=== PATIENT | female | born 1995 | race Caucasian/White ===

== ENCOUNTER 2017-09-24 18:29 | Observation (INO) | payer OTHER ==
[2017-09-24 19:19] VITALS: BP 118/57; PULSE 82
[2017-09-24 19:23] LABS: Appearance CLEAR (CLEAR); Specific Gravity 1.015 (1.005-1.025)
[2017-09-24 19:24] LABS: Amphetamine,Urine NEGATIVE (NEGATIVE); Barbiturate,Urine NEGATIVE (NEGATIVE); Benzodiazepine,Urine NEGATIVE (NEGATIVE); Bilirubin NEGATIVE (NEGATIVE); Blood TRACE NON-HEM Ery/ul (0-5); Cocaine,Urine NEGATIVE (NEGATIVE); Glucose NEGATIVE (NEGATIVE); Ketones NEGATIVE (NEGATIVE); Leukocyte Esterase NEGATIVE (NEGATIVE); Methadone,Urine NEGATIVE (NEGATIVE); Nitrite NEGATIVE (NEGATIVE); Opiate,Urine NEGATIVE (NEGATIVE); PCP,Urine NEGATIVE (NEGATIVE); Protein,Urine Dip NEGATIVE (Negative); THC,Urine NEGATIVE (NEGATIVE); Urobilinogen NORMAL mg/dL (0-1)
== END 2017-09-24 20:25 | disposition home or self-care (01) ==
LOC: OB 18:29 → UNDOADMOB 18:29 → UNDODISOB 20:25
PROVIDERS: ADMIT Family Medicine; ATTEND Family Medicine
DX: Z34.83 Encounter for supervision of other normal pregnancy, third trimester (principal)
CPT/HCPCS: 80307; 81002; G0378

== ENCOUNTER 2017-10-08 07:35 | Observation (INO) | payer OTHER ==
[2017-10-08 08:00] VITALS: BP 125/58; PULSE 75
[2017-10-08 08:34] LABS: Appearance SLIGHTLY HAZY (CLEAR)
[2017-10-08 08:35] LABS: Bilirubin NEGATIVE (NEGATIVE); Blood 250 Ery/ul (0-5); Glucose NEGATIVE (NEGATIVE); Ketones NEGATIVE (NEGATIVE); Leukocyte Esterase TRACE (NEGATIVE); Nitrite NEGATIVE (NEGATIVE); Protein,Urine Dip NEGATIVE (Negative); RBC >100 /HPF (0-2); Urobilinogen NORMAL mg/dL (0-1)
[2017-10-08 08:36] LABS: Bacteria MANY /HPF (NEGATIVE); Epithelial Cells MANY /HPF (FEW)
== END 2017-10-08 09:45 | disposition home or self-care (01) ==
LOC: OB 07:35
PROVIDERS: ADMIT Family Medicine; ATTEND Family Medicine
DX: Z34.83 Encounter for supervision of other normal pregnancy, third trimester (principal)
CPT/HCPCS: 81000; G0378

== ENCOUNTER 2017-10-29 05:01 | Inpatient (IN) | payer OTHER ==
[~2017-10-29 05:01] MED LIST: BICITRA 30 ML CUP PO SCH; Lactated Ringers 1,000 ML IV ONE; Lactated Ringers 1,000 ML IV SCH; Pepcid 20 MG VIAL IV SCH; Reglan 10 MG/2 ML IV SCH
[2017-10-29] MEDS ORDERED: CLINDAMYCIN-D5W 900 MG/50 ML*** 900 MG/50 ML BAG IV SCH (05:30)
[2017-10-29 05:42] LABS: Hematocrit 32.6 % (35-47); Mean Cell Volume 87.4 fl (78-100); Mean Corpuscular Hgb Concent. 33.7 g/dl (32-36); Mean Platelet Volume 11.2 fl (6-9.5); Platelet Count 199 K/mm3 (150-450); Red Blood Count 3.73 M/mm3 (4.1-5.4); White Blood Count 11.8 K/mm3 (4.0-10.5)
[2017-10-29 05:47] LABS: Mean Corpuscular Hemoglobin 29.4 pg (26-32)
[2017-10-29 05:58] LABS: INR 0.92 (0.8-3.0)
[2017-10-29 06:00] LABS: PTT 26.8 SECONDS (25.3-37.0)
[2017-10-29 06:11] LABS: Appearance CLOUDY (CLEAR); Bilirubin NEGATIVE (NEGATIVE); Blood NEGATIVE Ery/ul (0-5); Glucose NEGATIVE (NEGATIVE); Ketones TRACE (NEGATIVE); Leukocyte Esterase 1+ (NEGATIVE); Nitrite NEGATIVE (NEGATIVE); Protein,Urine Dip NEGATIVE (Negative); Urobilinogen 1 mg/dL (0-1)
[2017-10-29 06:16] LABS: Bacteria MODERATE /HPF (NEGATIVE); Epithelial Cells MANY /HPF (FEW); Mucus SLIGHT /HPF (NEGATIVE)
[2017-10-29 06:34] LABS: ABO TYPING B; Antibody Screen NEGATIVE (NEGATIVE); RH TYPING POSITIVE
[2017-10-29 06:37] LABS: Amphetamine,Urine NEGATIVE (NEGATIVE); Barbiturate,Urine NEGATIVE (NEGATIVE); Benzodiazepine,Urine NEGATIVE (NEGATIVE); Cocaine,Urine NEGATIVE (NEGATIVE); Methadone,Urine NEGATIVE (NEGATIVE); Opiate,Urine NEGATIVE (NEGATIVE); PCP,Urine NEGATIVE (NEGATIVE); THC,Urine NEGATIVE (NEGATIVE)
[2017-10-29] MEDS ORDERED: Lactated Ringers 1,000 ML IV ONE (07:36)
[2017-10-29] MEDS ORDERED: Narcan 0.4 MG/ML IV PRN (08:00)
[2017-10-29] MEDS ORDERED: CLARITIN 10 MG PO PRN (08:00)
[2017-10-29] MEDS ORDERED: Zofran 4 MG/2 ML VIAL IV PRN (08:00)
[2017-10-29] MEDS ORDERED: PERCOCET TABLET 5/325MG PO PRN (08:00)
[2017-10-29] MEDS ORDERED: HOLD NARCOTIC ANALGESICS AND SEDATIVES X24 HR MC PRN (08:00)
[2017-10-29] MEDS ORDERED: DEMEROL 50 MG IV PRN (08:00)
[2017-10-29] MEDS ORDERED: BENADRYL 50 MG/ML IV PRN (08:00)
[2017-10-29] MEDS ORDERED: Nubain 10 MG/ML IV PRN (08:00)
[2017-10-29] MEDS ORDERED: Zofran 4 MG/2 ML VIAL ONE (08:41)
[2017-10-29] MEDS ORDERED: TYLENOL EXTRA STRENGTH 500 MG PO PRN (09:00)
[2017-10-29] MEDS ORDERED: CORTISONE 1% CREAM TP PRN (09:00)
[2017-10-29] MEDS ORDERED: Anucort-HC SUPPOSITORY PR PRN (09:00)
[2017-10-29] MEDS ORDERED: LANSINOH 40 GM TOP PRN (09:00)
[2017-10-29] MEDS ORDERED: Dulcolax 10 MG SUPP PR PRN (09:00)
[2017-10-29] MEDS ORDERED: Dermoplast Spray TP PRN (09:00)
[2017-10-29] MEDS ORDERED: Mylicon 80MG PO PRN (09:00)
--- NOTE | 2017-10-29 09:36 | OP ---
SURGERY DATE: 10/29/17 SURGERY TIME: PREOPERATIVE DIAGNOSES: 1. GESTATIONAL HYPERTENSION. 2. HISTORY OF PRIOR SECTION. 3. TERM INTRAUTERINE . POSTOPERATIVE DIAGNOSES: 1. GESTATIONAL HYPERTENSION. 2. HISTORY OF PRIOR SECTION. 3. TERM INTRAUTERINE . PROCEDURE: 1. Repeat low transverse section. SURGEON: James Will M.D. ANESTHESIA: Spinal by Neal Prado CRNA. ESTIMATED BLOOD LOSS: 400 cc. URINE: 150 cc of clear, straw-colored urine. IV FLUIDS: 1800 cc of crystalloid. SPECIMEN: None. DESCRIPTION OF PROCEDURE: After informed written consent was obtained, the patient was taken to the OR. She underwent spinal anesthesia and was prepped and draped in the usual sterile fashion. After adequate level of anesthesia was assessed, a low transverse skin incision was made by knife and carried down through the subcutaneous fat to the level of the fascia. The fascia was nicked on both sides of the midline and extended in a horizontal fashion using curved Jacobo scissors. The superior free edge of the fascia was grasped with Bartolo clamps and the underlying rectus muscles were dissected free. The same was repeated inferiorly. Next, the peritoneal cavity was opened and extended in a horizontal fashion. A bladder blade was inserted. Then, a bladder flap was created and reflected over the lower uterine segment. A horizontal uterine incision was made by knife and carried down to the level of the amniotic membranes which were carefully artificially ruptured. A viable female infant was delivered from the vertex presentation with a strong cry immediately upon delivery. The oropharynx and nares were bulb suctioned free. Cord was clamped and cut and she was handed off to the awaiting nursery team. Next, the placenta was manually removed from the uterus and the uterus was exteriorized. The uterine cavity was then sponge curetted clean with a Lap sponge. Next, the uterine incision was closed with #1 chromic suture in a running, locked fashion. Two layers were used to provide good closure and good hemostasis. The posterior cul-de-sac was wiped free of blood and clot with a moist Lap sponge and then the uterus was returned to the peritoneal cavity. Lateral gutters were wiped free of blood and clot and again, the uterine incision was inspected and noted to be well approximated and hemostatic. Next, the fascia was closed with 0 Vicryl in a running fashion with good closure and good hemostasis. Subcutaneous fat was irrigated with warm, sterile saline and any areas of bleeding were cauterized with electrocautery. Finally, the skin layer was closed with 4-0, undyed Vicryl in running subcuticular fashion. Steri-Strips and an occlusive dressing were placed over the incision and the patient was transferred to the recovery room in excellent condition.
[2017-10-29] MEDS: Dextrose 5%-Lr IV Solution 1000 ML 1,000 ML IV SCH ×2 (10:05→16:47)
[2017-10-29] MEDS: Colace 100 MG PO SCH ×2 (10:06→22:09)
[2017-10-29] MEDS: FERREX 150 PO SCH (10:06)
[2017-10-29] MEDS ORDERED: Marcaine Spinal Ampul IJ ONE (10:49)
[2017-10-29] MEDS ORDERED: Naropin 0.5% 30 ML VIAL IJ ONE (10:49)
[2017-10-29] MEDS ORDERED: Xylocaine-Mpf 2% 5 Ml Vial IJ ONE (10:49)
[2017-10-29] MEDS ORDERED: Zofran 4 MG/2 ML VIAL IV ONE (10:53)
[2017-10-29] MEDS ORDERED: Decadron 4 MG INJ IV ONE (10:53)
[2017-10-29] MEDS ORDERED: Ephedrine Sulfate 50 MG/ML IJ ONE (10:53)
[2017-10-29] MEDS: MOTRIN 400 MG PO PRN (14:20)
[2017-10-29] MEDS: NORCO 5/325 MG PO PRN (22:20)
[2017-10-30 05:56] LABS: Granulocyte Absolute (ANC) 12.44 (1.4-6.9); Hemoglobin 9.7 gm/dl (12.0-16.0); Mean Cell Volume 88.1 fl (78-100); Mean Corpuscular Hgb Concent. 33.4 g/dl (32-36); Mean Platelet Volume 11.2 fl (6-9.5); Platelet Count 216 K/mm3 (150-450); Red Blood Count 3.29 M/mm3 (4.1-5.4); Red Cell Distribution Width 14.1 % (11.5-14.0); White Blood Count 16.6 K/mm3 (4.0-10.5)
[2017-10-30 05:59] LABS: Mean Corpuscular Hemoglobin 29.4 pg (26-32)
[2017-10-30] MEDS: NORCO 5/325 MG PO PRN ×4 (06:00→23:57)
[2017-10-30 07:16] LABS: BAND 3 % (0.0-2.0); Eosinophil 2 % (0.00-3.0); Lymphocytes 21 % (24-44); Metamyelocyte 1 %; Monocyte 4 % (0.0-12.0); Neutrophils 69 % (36.0-66.0); Platelet Estimate NORMAL (NORMAL); Total Cells Counted 100
[2017-10-30] MEDS ORDERED: DEMEROL 75 MG IM PRN (08:00)
[2017-10-30] MEDS ORDERED: NORCO 5/325 MG PO PRN (08:00)
[2017-10-30] MEDS ORDERED: Phenergan 25 MG INJ IM PRN (08:00)
[2017-10-30] MEDS ORDERED: Adacel Vial IM ONE (10:00)
[2017-10-30] MEDS: FERREX 150 PO SCH (11:40)
[2017-10-30] MEDS: Colace 100 MG PO SCH ×2 (11:40→21:47)
[2017-10-30] MEDS: MOTRIN 400 MG PO PRN (14:17)
[2017-10-31 09:59] VITALS: BP 114/67; PULSE 90
--- NOTE | 2017-11-03 12:55 | DS ---
DISCHARGE DIAGNOSIS: SECTION DELIVERY OF TERM INTRAUTERINE . HOSPITAL COURSE: The patient is a 22 year-old white female who presented for delivery. She had a section performed on 10/29/2017. The patient has done well postoperatively. She has been afebrile with stable vital signs. Her postoperative hemoglobin was 9.7, PLT count was normal at 216,000. She has been afebrile with stable vital signs. The wound has continued to look good. She is ready for discharge home on the morning of 10/31/2017. I will follow her up in the office next week due to the patient's doctor being out of the office next week. She was instructed to call back if she has any fever, heavy bleeding, increasing abdominal pain, redness of the wound site or drainage.
== END 2017-10-31 11:00 | disposition home or self-care (01) | DRG 766 ==
LOC: OB 05:01
PROVIDERS: ADMIT Family Medicine; ATTEND Family Medicine
PROC: 10D00Z1 Extraction of Products of Conception, Low, Open Approach (ICD-10-PCS; principal; 2017-10-29)
DX: O13.3 Gestational [pregnancy-induced] hypertension without significant proteinuria, third trimester (principal); Z3A.38 38 weeks gestation of pregnancy; Z37.0 Single live birth
CPT/HCPCS: 36415; 64488; 76937; 76942; 80307; 81000; 85025; 85027; 85610; 85730; 86850; 86900; 86901; 87086; 90471; 90715; J1100; J2405; J2795; L0625; A9270-GY

== ENCOUNTER 2018-01-23 18:51 | Emergency (ER) | payer OTHER ==
[2018-01-23 19:15] VITALS: BP 117/74; PULSE 93
[2018-01-23] MEDS ORDERED: TYLENOL EXTRA STRENGTH 500 MG ONE (19:37)
[2018-01-23] MEDS ORDERED: TORAdol 30 mg Injection ONE (19:37)
[2018-01-23] MEDS ORDERED: MOTRIN 600 MG ONE (19:38)
[2018-01-23] MEDS: MOTRIN 600 MG PO ONE (19:40)
[2018-01-23] MEDS: TORAdol 30 mg Injection IM ONE (19:41)
[2018-01-23] MEDS: TYLENOL EXTRA STRENGTH 500 MG PO STA (19:41)
--- NOTE | 2018-01-23 19:41 | ERPHSYRPT ---
- History of Present Illness Time Seen by Provider: 01/23/18 19:36 Source: patient Exam Limitations: no limitations Patient Subjective Stated Complaint: pt here for possible infection to right breast, pt is breast feeding at current time and running a fever at present time Triage Nursing Assessment: pt walked in resp easy, skin w/d/p, pt has swelling, reddness and warmth to right breast Physician History: 22-year-old female presented breast-feeding came to the emergency room with complaining of severe pain on her right breast with some redness and erythema, as well as fever about 102F. Initially, she put heat, but which made her pain worse, afterwards, when she put ice pack. it did got better. Timing/Duration: today Severity: moderate Modifying Factors: Improves With: cold therapy Associated Symptoms: fever Allergies/Adverse Reactions: amoxicillin [Amoxicillin] Allergy (Mild, Verified 01/23/18 19:15) morphine Allergy (Verified 01/23/18 19:15) pt has had morphine twice and states she had trouble breathing Home Medications: No Reportable Medications [No Reported Medications] 01/23/18 [History] Hx Tetanus, Diphtheria Vaccination/Date Given: Yes Hx Influenza Vaccination/Date Given: Yes Hx Pneumococcal Vaccination/Date Given: No Immunizations Up to Date: Yes - Review of Systems Constitutional: Fever, No Chills Eyes: No Symptoms Ears, Nose, & Throat: No Symptoms Respiratory: No Cough, No Dyspnea Cardiac: No Chest Pain, No Edema, No Syncope Abdominal/Gastrointestinal: No Abdominal Pain, No Nausea, No Vomiting, No Diarrhea Genitourinary Symptoms: No Dysuria Musculoskeletal: No Back Pain, No Neck Pain Skin: Other (right breast lateral redness and tenderness), No Rash Neurological: No Dizziness, No Focal Weakness, No Sensory Changes Psychological: No Symptoms Endocrine: No Symptoms All Other Systems: Reviewed and Negative - Past Medical History Pertinent Past Medical History: No - Past Surgical History Past Surgical History: Yes Female Surgical History: Section - Social History Smoking Status: Former smoker Exposure to second hand smoke: No Drug Use: none Patient Lives Alone: No - Female History Hx Last Menstrual Period: december 29 Hx Now: No - Nursing Vital Signs Nursing Vital Signs: Initial Vital Signs Temperature 98.1 F 01/23/18 19:10 Pulse Rate 93 H 01/23/18 19:10 Respiratory Rate 16 01/23/18 19:10 Blood Pressure 117/74 01/23/18 19:10 Pain Scale Pain Intensity 7 - Physical Exam General Appearance: no apparent distress, alert Eye Exam: PERRL/EOMI, eyes nml inspection Ears, Nose, Throat Exam: normal ENT inspection, TMs normal, pharynx normal, moist mucous membranes Neck Exam: normal inspection, non-tender, supple, full range of motion Respiratory Exam: normal breath sounds, lungs clear, No respiratory distress Cardiovascular Exam: regular rate/rhythm, normal heart sounds, normal peripheral pulses Gastrointestinal/Abdomen Exam: soft, normal bowel sounds, No tenderness, No mass Back Exam: normal inspection, normal range of motion, No CVA tenderness, No vertebral tenderness Extremity Exam: normal inspection, normal range of motion, pelvis stable Neurologic Exam: alert, oriented x 3, cooperative, normal mood/affect, nml cerebellar function, nml station & gait, sensation nml, No motor deficits Skin Exam: normal color, warm, dry, other (right breast tenderness and erythema) , No rash Lymphatic Exam: No adenopathy - Course Nursing assessment & vital signs reviewed: Yes Ordered Tests: Active Orders 24 hr Category Date Time Status Ice Pack, Apply PRN Care 01/23/18 19:29 Active Medication Summary Discontinued Medications Generic Name Dose Route Start Last Admin Trade Name Pashaq PRN Reason Stop Dose Admin Acetaminophen 1,000 mg 01/23/18 19:30 01/23/18 19:41 Tylenol Extra Strength 500 Mg PO 01/23/18 19:31 1,000 mg STAT STA Administration Acetaminophen Confirm 01/23/18 19:37 Tylenol Extra Strength 500 Mg Administered 01/23/18 19:38 Dose 1,000 mg .ROUTE .STK-MED ONE Ibuprofen 600 mg 01/23/18 19:29 01/23/18 19:40 Motrin 600 Mg PO 01/23/18 19:30 600 mg STAT ONE Administration Ibuprofen Confirm 01/23/18 19:38 Motrin 600 Mg Administered 01/23/18 19:39 Dose 600 mg .ROUTE .STK-MED ONE Ketorolac Tromethamine 30 mg 01/23/18 19:29 01/23/18 19:41 Toradol 30 Mg Injection IM 01/23/18 19:30 30 mg STAT ONE Administration Ketorolac Tromethamine Confirm 01/23/18 19:37 Toradol 30 Mg Injection Administered 01/23/18 19:38 Dose 30 mg .ROUTE .STK-MED ONE - Progress Progress: improved, pain not gone completely Counseled pt/family regarding: diagnosis, need for follow-up - Departure Time of Disposition: 19:55 Departure Disposition: Home Clinical Impression: Mastitis without abscess, Mastitis, obstetric, condition Condition: Stable Critical Care Time: No Referrals: IMANI PATEL MD [Primary Care Provider] - Instructions: Mastitis, Mastitis (DC), Common Problems, Fever, Adult (DC) Additional Instructions: FEVER 1. Do not cover the child with heavy clothes or blankets. Air must be able to reach the skin to lower the fever. 2. Use Acetaminophen or Ibuprofen only as directed by the physician. Do not use aspirin products. 3. A tepid, or luke warm sponge bath may be indicated if the fever raises to 103.5 or greater. Sponge bath should only last for 20-30 minutes. Recheck the child's temperature one hour after sponge bath. Do not soak the child in tub. Please follow the instructions given to you. Please take your medication as prescribed if given. If symptoms recur or get worse, come back to the emergency room if you cannot reach your primary care physician, or call your primary care physician for an appointment. Again if your symptoms get worse, come back to the emergency room. Thanks for visiting emergency room, and let us take care of you.
== END 2018-01-23 20:18 | disposition home or self-care (01) ==
LOC: ED 18:51
DX: O91.22 Nonpurulent mastitis associated with the puerperium (principal)
CPT/HCPCS: 96372; 99284; J1885; A9270-GY

== ENCOUNTER 2021-11-13 20:08 | Emergency (ER) | payer OTHER ==
[2021-11-13 21:09] LABS: Appearance SLIGHTLY CLOUDY (CLEAR); Bilirubin SMALL (NEGATIVE); Dipstick done @ ? MAIN LAB; Glucose 100 mg/dL (NEGATIVE); Ketones SMALL-15 (NEGATIVE); Nitrite POSITIVE (NEGATIVE); Protein,Urine Dip 100 (Negative); RBC MODERATE Ery/ul (0-5); Specific Gravity 1.025 (1.005-1.025); Urobilinogen 4 mg/dL (0-1)
[2021-11-13 21:14] LABS: Bacteria FEW /HPF (NEGATIVE); Epithelial Cells RARE /HPF (FEW); Mucus SLIGHT /HPF (NEGATIVE); RBC 26-50 /HPF (0-2); Urine Cultured Indicated? YES; WBC 51-100 /HPF (0-5)
--- NOTE | 2021-11-13 22:57 | ERPHSYRPT ---
- History of Present Illness Time Seen by Provider: 11/13/21 20:40 Source: patient Exam Limitations: no limitations Patient Subjective Stated Complaint: pt states she has been having lower back pain and pain in her bladder area. describes pain as pressure. pain with urinat ion. Triage Nursing Assessment: pt alert and oriented, answers questions approp. pt ambulatory with steady gait noted. respirations nonlabored with lungs cta. skin pink warm and dry. urine orange- pt taking pyridium. Physician History: Patient is a 26-year-old female presents to our ED with complaints of mild abdominal pain mild back pain. Patient was seen at a [facility] care today. Patient was diagnosed with a urinary tract infection. Patient was prescribed antibiotics. Patient was advised to come to our ED if she experienced worsening symptoms. Patient is here because of vague diffuse abdominal pain and low back pain. No nausea or vomiting. No diarrhea. No rash. No fever no trauma. Symptoms are mild in intensity. Patient declined pain medication. Patient that she is otherwise healthy. She voices no other complaints or concerns at this time. Timing/Duration: today Severity: mild Modifying Factors: Improves With: nothing Associated Symptoms: denies symptoms, No nausea, No vomiting, No shortness of breath, No diaphoresis, No chest pain, No fever, No headaches, No syncope, No seizure, No weakness Allergies/Adverse Reactions: amoxicillin [Amoxicillin] Allergy (Mild, Verified 11/13/21 20:45) morphine Allergy (Verified 11/13/21 20:45) pt has had morphine twice and states she had trouble breathing Home Medications: Nitrofurantoin Macro 100 mg [Macrobid 100MG Capsule] 100 mg PO BID 11/13/21 [History] Phenazopyridine HCl 200 mg [Pyridium 200 mg] 200 mg PO TID 11/13/21 [History] Hx Tetanus, Diphtheria Vaccination/Date Given: No Hx Influenza Vaccination/Date Given: Yes Hx Pneumococcal Vaccination/Date Given: No Immunizations Up to Date: Yes Travel Risk - International Travel Have you traveled outside of the country in past 3 weeks: No - Coronavirus Screening Are you exhibiting any of the following symptoms?: No Close contact with a COVID-19 positive Pt in past 14-21 Days: No - Vaccine Status Have you recieved a Covid-19 vaccination: Yes [employer]: TMS - Vaccination Dates Date of 2cond Vaccination (if applicable): dec 2020 - Review of Systems Constitutional: No Symptoms, No Fever, No Chills Eyes: No Symptoms Ears, Nose, & Throat: No Symptoms Respiratory: No Symptoms, No Cough, No Dyspnea Cardiac: No Symptoms, No Chest Pain, No Edema, No Syncope Abdominal/Gastrointestinal: No Symptoms, No Abdominal Pain, No Nausea, No Vomiting, No Diarrhea Genitourinary Symptoms: No Symptoms, No Dysuria Musculoskeletal: No Symptoms, No Back Pain, No Neck Pain Skin: No Symptoms, No Rash Neurological: No Symptoms, No Dizziness, No Focal Weakness, No Sensory Changes Psychological: No Symptoms Endocrine: No Symptoms Hematologic/Lymphatic: No Symptoms Immunological/Allergic: No Symptoms All Other Systems: Reviewed and Negative - Past Medical History Pertinent Past Medical History: No - Past Surgical History Past Surgical History: Yes Female Surgical History: Section Other Surgical History: c sections x2 - Social History Smoking Status: Never smoker Exposure to second hand smoke: No Drug Use: none Patient Lives Alone: No - Female History Hx Last Menstrual Period: iud out last week- none since Hx Now: No - Nursing Vital Signs Nursing Vital Signs: Initial Vital Signs Temperature 98.0 F 11/13/21 20:29 Pulse Rate 83 11/13/21 20:29 Respiratory Rate 16 11/13/21 20:29 Blood Pressure 125/79 11/13/21 20:29 O2 Sat by Pulse Oximetry 98 11/13/21 20:29 Pain Scale Pain Intensity 6 - Physical Exam General Appearance: no apparent distress, alert Eye Exam: PERRL/EOMI, eyes nml inspection Ears, Nose, Throat Exam: normal ENT inspection, TMs normal, pharynx normal, moist mucous membranes Neck Exam: normal inspection, non-tender, supple, full range of motion Respiratory Exam: normal breath sounds, lungs clear, No respiratory distress Cardiovascular Exam: regular rate/rhythm, normal heart sounds, normal peripheral pulses Gastrointestinal/Abdomen Exam: soft, normal bowel sounds, other (No abdominal tenderness. However patient complains of mild diffuse abdominal pain.), No tenderness, No mass Back Exam: normal inspection, normal range of motion, No CVA tenderness, No vertebral tenderness Extremity Exam: normal inspection, normal range of motion, pelvis stable Neurologic Exam: alert, oriented x 3, cooperative, normal mood/affect, nml cerebellar function, nml station & gait, sensation nml, No motor deficits Skin Exam: normal color, warm, dry, No rash Lymphatic Exam: No adenopathy SpO2 Interpretation: normal SpO2: 96 O2 Delivery: Room Air - Course Nursing assessment & vital signs reviewed: Yes - CT Exams Abdomen/Pelvis CT Interpretation: Tele-radiologist Report (Compared to 09/22/2012, again mild diffuse fecal stasis. No bismuth or barium seen throughout colon. Remaining abdomen pelvis negative.) Ordered Tests: Active Orders 24 hr Category Date Time Status ABDOMEN AND PELVIS W/0 CONTRAS [CT] Stat Exams 11/13/21 20:39 Taken CULTURE,URINE Stat Lab 11/13/21 20:44 Received HCG,QUALITATIVE URINE Stat Lab 11/13/21 20:44 Completed UA W/RFX CULTURE Stat Lab 11/13/21 20:44 Completed Lab/Rad Data: Laboratory Results 11/13/21 11/13/21 Range/Units 20:44 20:44 Urinalys Dipstick Clnc MAIN LAB Urine Color ORANGE (YELLOW) Urine Appearance SLIGHTLY CLOUDY (CLEAR) Urine pH 7.0 (5-6) Ur Specific Hollister 1.025 (1.005-1.025) POC Urine Protein Conf 100 (Negative) Urine Ketones SMALL-15 (NEGATIVE) Urine Nitrite POSITIVE (NEGATIVE) Urine Bilirubin SMALL (NEGATIVE) Urine Urobilinogen 4 (0-1) mg/dL Urine Leukocytes LARGE (NEGATIVE) Urine WBC (Auto) 51-100 (0-5) /HPF Urine RBC (Auto) 26-50 (0-2) /HPF U Epithel Cells (Auto) RARE (FEW) /HPF Urine Bacteria (Auto) FEW (NEGATIVE) /HPF Urine RBC MODERATE (0-5) Otis/ul Urine Mucus (Auto) SLIGHT (NEGATIVE) /HPF Ur Culture Indicated? YES Urine Glucose 100 (NEGATIVE) mg/dL Urine HCG, Qual NEGATIVE (Negative) - Progress Progress: improved Progress Note: Patient reassessed. She feels well. No abdominal pain. Patient does have a urinary tract infection as confirmed during her quick care visit earlier in the day. Patient started taking her Macrobid. Patient will be taken her second dose of Macrobid right now. Therefore no indication for antibiotics at this time. Patient states she has history of chronic constipation and is on MiraLAX. This explains the fecal stasis observed on CT of the abdomen and pelvis. CT abdomen pelvis otherwise negative. No indication for further work-up. Patient currently asymptomatic. Patient agrees to follow-up with primary care doctor within 48 hours for evaluation. She voices no other complaints or concerns at this time. Portions of this note were created with voice recognition technology. There may be grammatical, spelling, punctuation or sound alike errors 11/13/21 23:02 Counseled pt/family regarding: lab results, diagnosis, need for follow-up, rad results - Departure Departure Disposition: Home Clinical Impression: UTI (urinary tract infection), Fecal stasis Condition: Stable Critical Care Time: No Referrals: IMANI PATEL MD [Primary Care Provider] - Follow up/PCP as directed Instructions: Urinary Tract Infections in Adults, Constipation in Adults Additional Instructions: Discharge/Care Plan SUZANNE DINH was seen on 11/13/21 in the Emergency Room. The patient was counseled regarding Diagnosis,Lab results, Imaging studies, need for follow up and when to return to the Emergency Room. Prescriptions given: Discharge Note I have spoken with the patient and/or caregivers. I have explained the patient's condition, diagnosis and treatment plan based on the information available to me at this time. I have answered the patient's and/or caregiver's questions and addressed any concerns. The patient and/or caregivers have as good understanding of the patient's diagnosis, condition and treatment plan as can be expected at this point. The vital signs have been stable. The patient's condition is stable and appropriate for discharge from the emergency department. The patient will pursue further outpatient evaluation with the primary care physician or other designated or consulting physician as outlined in the disch arge instructions. The patient and/or caregivers are agreeable to this plan of care and follow-up instructions have been explained in detail. The patient and/or caregivers have received these instruction. The patient/and or caregivers are aware that any significant change in condition or worsening of symptoms should prompt an immediate return to this or the closest emergency department or call 911.
[2021-11-13 23:02] VITALS: BP 112/67; PULSE 69
[2021-11-13 23:03] VITALS: O2SAT 96
--- NOTE | 2021-11-14 08:58 | XRAY ---
Indication: Abdomen/pelvic pain. History UTI. Multiple contiguous axial images obtained through the abdomen and pelvis without contrast. Comparison: September 22, 2012 Lung bases again demonstrates minimal dependent atelectasis. No infiltrate or effusion. Heart not enlarged. Stomach distended with food/fluid. New radiopacities throughout the colon either ingested bismuth versus barium. Stomach and bowel loops appear nonobstructed. Normal air-filled appendix. There is again mild diffuse scattered colonic fecal debris throughout. No free fluid/air. Gallbladder contracted without gallstones. Remaining liver, gallbladder, pancreas, spleen, adrenal glands, kidneys, ureters, bladder, uterus, and aorta are unremarkable for noncontrast exam. Osseous structures intact. No ventral or inguinal hernias. Impression: 1. Again mild diffuse fecal stasis. 2. Remaining CT abdomen/pelvis without contrast exam is negative.
== END 2021-11-13 23:06 | disposition home or self-care (01) ==
LOC: ED 20:08
DX: N39.0 Urinary tract infection, site not specified (principal); K59.89 Other specified functional intestinal disorders; R10.9 Unspecified abdominal pain; M54.50 Low back pain, unspecified; Z79.899 Other long term (current) drug therapy
CPT/HCPCS: 74176; 81015; 81025; 87086; 99283

== ENCOUNTER 2022-01-16 19:27 | Emergency (ER) | payer OTHER ==
[2022-01-16] MEDS ORDERED: Sodium Chloride 0.9% 1000 ML 1,000 ML IV STA (19:56)
--- NOTE | 2022-01-16 19:59 | ERPHSYRPT ---
- History of Present Illness Time Seen by Provider: 01/16/22 19:30 Source: patient Exam Limitations: no limitations Patient Subjective Stated Complaint: tylenol at 2 pm- 500 mg Triage Nursing Assessment: pt states that she has been having vaginal bleeding and cramping for two weeks, states she is 7 weeks tomorrow. states that the blood has turned a mucus that is brown in color. Physician History: 26 years old 3 para 2 at almost 7 weeks gestation per LMP presented in the ER with 2 weeks history of intermittent pelvic cramping mild to moderate with associated mild bleeding and now having brownish discharge. Patient reports she has a pressure feeling. Has not seen OB but has positive home test. Does report increased urinary frequency without dysuria or hematuria. No fever or chills reported. Timing/Duration: week(s) (2), intermittent, gradual onset, worse Activites at Onset: none Quality: cramping Onset Location: pelvic pain Pain Radiation: none Severity of Pain-Max: moderate Severity of Pain-Current: mild Sexual intercourse history: single partner Modifying Factors: Improves With: nothing Associated Symptoms: urinary frequency, Allergies/Adverse Reactions: amoxicillin [Amoxicillin] Allergy (Mild, Verified 01/16/22 19:41) morphine Allergy (Verified 01/16/22 19:41) pt has had morphine twice and states she had trouble breathing Home Medications: Nitrofurantoin Macro 100 mg [Macrobid 100MG Capsule] 100 mg PO BID 11/13/21 [History] Phenazopyridine HCl 200 mg [Pyridium 200 mg] 200 mg PO TID 11/13/21 [History] Hx Tetanus, Diphtheria Vaccination/Date Given: No Hx Influenza Vaccination/Date Given: Yes Hx Pneumococcal Vaccination/Date Given: No Travel Risk - International Travel Have you traveled outside of the country in past 3 weeks: No - Coronavirus Screening Are you exhibiting any of the following symptoms?: No Close contact with a COVID-19 positive Pt in past 14-21 Days: No - Vaccine Status Have you recieved a Covid-19 vaccination: Yes [employer]: Moderna - Vaccination Dates Date of 2cond Vaccination (if applicable): unknown - Review of Systems Constitutional: No Symptoms Eyes: No Symptoms Ears, Nose, & Throat: No Symptoms Respiratory: No Symptoms Cardiac: No Symptoms Abdominal/Gastrointestinal: Abdominal Pain Genitourinary Symptoms: Frequency, Musculoskeletal: No Symptoms Skin: No Symptoms Neurological: No Symptoms Psychological: No Symptoms Endocrine: No Symptoms Hematologic/Lymphatic: No Symptoms - Past Medical History Pertinent Past Medical History: No - Past Surgical History Past Surgical History: Yes Female Surgical History: Section Other Surgical History: c sections x2 - Social History Smoking Status: Never smoker Exposure to second hand smoke: No Drug Use: none Patient Lives Alone: No - Female History Hx Last Menstrual Period: 11/27/21 Hx Now: Yes - Nursing Vital Signs Nursing Vital Signs: Initial Vital Signs Temperature 98.4 F 01/16/22 19:32 Pulse Rate 105 H 01/16/22 19:32 Respiratory Rate 18 01/16/22 19:32 Blood Pressure 114/81 01/16/22 19:32 O2 Sat by Pulse Oximetry 100 01/16/22 19:32 Pain Scale Pain Intensity 2 - Physical Exam General Appearance: no apparent distress, alert Eye Exam: PERRL/EOMI Ears, Nose, Throat Exam: normal ENT inspection Neck Exam: normal inspection, supple, full range of motion Respiratory Exam: normal breath sounds, lungs clear Cardiovascular Exam: regular rate/rhythm, normal heart sounds Gastrointestinal/Abdomen Exam: soft, normal bowel sounds, No tenderness Pelvic Exam: not done Extremity Exam: normal inspection, normal range of motion Neurologic Exam: alert, oriented x 3, cooperative Skin Exam: normal color SpO2 Interpretation: normal SpO2: 100 O2 Delivery: Room Air Ordered Tests: Active Orders 24 hr Category Date Time Status IV Insertion STAT Care 01/16/22 19:56 Active OB <14 WKS 1ST GESTATION [US] Stat Exams 01/16/22 22:09 Taken CBC W DIFF Stat Lab 01/16/22 20:09 Completed CMP Stat Lab 01/16/22 20:09 Results HCG, Quantitative (Inhouse) Stat Lab 01/16/22 20:09 Results HCG,QUALITATIVE URINE Stat Lab 01/16/22 20:50 Completed UA W/RFX CULTURE Stat Lab 01/16/22 20:09 Completed Medication Summary Discontinued Medications Generic Name Dose Route Start Last Admin Trade Name Freq PRN Reason Stop Dose Admin Sodium Chloride 1,000 mls @ 999 mls/hr 01/16/22 19:56 01/16/22 21:23 Sodium Chloride 0.9% 1000 Ml IV 01/16/22 20:56 Infused .Q1H1M STA Infusion Sodium Chloride Confirm 01/16/22 20:11 Sodium Chloride 0.9% 1000 Ml Administered 01/16/22 20:12 Dose 1,000 mls @ .ROUTE [facility] Lab/Rad Data: Laboratory Result Diagrams 01/16/22 20:09 01/16/22 20:09 Laboratory Results 01/16/22 01/16/22 01/16/22 Range/Units 20:50 20:09 20:09 WBC (4.0-10.5) x10^3/uL RBC (4.1-5.4) x10^6/uL Hgb (12.0-16.0) g/dL Hct (35-47) % MCV (78-100) fL MCH (26-32) pg MCHC (32-36) g/dL RDW (11.5-14.0) % Plt Count (150-450) x10^3/uL MPV (7.5-11.0) fL Gran % (36.0-66.0) % Immature Gran % (Auto) (0.00-0.4) % Nucleat RBC Rel Count (0.00-0.1) % Eos # (Auto) (0-0.5) x10^3/uL Immature Gran # (Auto) (0.00-0.03) x10^3u/L Absolute Lymphs (auto) (1.0-4.6) x10^3/uL Absolute Monos (auto) (0.0-1.3) x10^3/uL Absolute Nucleated RBC (0.00-0.01) x10^3u/L Lymphocytes % (24.0-44.0) % Monocytes % (0.0-12.0) % Eosinophils % (0.00-5.0) % Basophils % (0.0-0.4) % Absolute Granulocytes (1.4-6.9) x10^3/uL Basophils # (0-0.4) x10^3/uL Sodium Pending Sodium Direct 137 L (138-146) mmol/L Potassium 3.4 L (3.5-4.9) mmol/L Chloride 100 (98-109) mmol/L Carbon Dioxide 26 (24-29) mmol/L Anion Gap Pending BUN Pending Venous BUN 10 (8-26) mg/dL Creatinine 0.8 (0.6-1.3) mg/dL Estimated GFR Pending Glucose 90 (70-105) mg/dL Calcium Pending Ionized Calcium 1.21 (1.12-1.32) mmol/L Total Bilirubin Pending AST Pending ALT Pending Alkaline Phosphatase Pending Serum Total Protein Pending Albumin Pending Beta HCG, Quant Pending Urinalys Dipstick Clnc MAIN LAB Urine Color YELLOW (YELLOW) Urine Appearance CLEAR (CLEAR) Urine pH 6.5 (5-6) Ur Specific [place] >=1.030 (1.005-1.025) POC Urine Protein Conf NEGATIVE (Negative) Urine Ketones NEGATIVE (NEGATIVE) Urine Nitrite NEGATIVE (NEGATIVE) Urine Bilirubin NEGATIVE (NEGATIVE) Urine Urobilinogen 1 (0-1) mg/dL Urine Leukocytes NEGATIVE (NEGATIVE) Urine WBC (Auto) NONE (0-5) /HPF Urine RBC (Auto) NONE (0-2) /HPF U Epithel Cells (Auto) RARE (FEW) /HPF Urine Bacteria (Auto) RARE (NEGATIVE) /HPF Urine RBC NEGATIVE (0-5) Otis/ul Urine Mucus (Auto) SLIGHT (NEGATIVE) /HPF Ur Culture Indicated? NO Urine Glucose NEGATIVE (NEGATIVE) mg/dL Urine HCG, Qual POSITIVE (Negative) 01/16/22 Range/Units 20:09 WBC 7.5 (4.0-10.5) x10^3/uL RBC 4.46 (4.1-5.4) x10^6/uL Hgb 13.5 (12.0-16.0) g/dL Hct 39.7 (35-47) % MCV 89.0 (78-100) fL MCH 30.3 (26-32) pg MCHC 34.0 (32-36) g/dL RDW 12.5 (11.5-14.0) % Plt Count 211 (150-450) x10^3/uL MPV 10.3 (7.5-11.0) fL Gran % 64.1 (36.0-66.0) % Immature Gran % (Auto) 0.3 (0.00-0.4) % Nucleat RBC Rel Count 0.0 (0.00-0.1) % Eos # (Auto) 0 (0-0.5) x10^3/uL Immature Gran # (Auto) 0.02 (0.00-0.03) x10^3u/L Absolute Lymphs (auto) 1.87 (1.0-4.6) x10^3/uL Absolute Monos (auto) 0.73 (0.0-1.3) x10^3/uL Absolute Nucleated RBC 0.00 (0.00-0.01) x10^3u/L Lymphocytes % 25.0 (24.0-44.0) % Monocytes % 9.8 (0.0-12.0) % Eosinophils % 0.0 (0.00-5.0) % Basophils % 0.8 (0.0-0.4) % Absolute Granulocytes 4.80 (1.4-6.9) x10^3/uL Basophils # 0.06 (0-0.4) x10^3/uL Sodium Sodium Direct (138-146) mmol/L Potassium (3.5-4.9) mmol/L Chloride (98-109) mmol/L Carbon Dioxide (24-29) mmol/L Anion Gap BUN Venous BUN (8-26) mg/dL Creatinine (0.6-1.3) mg/dL Estimated GFR Glucose (70-105) mg/dL Calcium Ionized Calcium (1.12-1.32) mmol/L Total Bilirubin AST ALT Alkaline Phosphatase Serum Total Protein Albumin Beta HCG, Quant Urinalys Dipstick Clnc Urine Color (YELLOW) Urine Appearance (CLEAR) Urine pH (5-6) Ur Specific [place] (1.005-1.025) POC Urine Protein Conf (Negative) Urine Ketones (NEGATIVE) Urine Nitrite (NEGATIVE) Urine Bilirubin (NEGATIVE) Urine Urobilinogen (0-1) mg/dL Urine Leukocytes (NEGATIVE) Urine WBC (Auto) (0-5) /HPF Urine RBC (Auto) (0-2) /HPF U Epithel Cells (Auto) (FEW) /HPF Urine Bacteria (Auto) (NEGATIVE) /HPF Urine RBC (0-5) Otis/ul Urine Mucus (Auto) (NEGATIVE) /HPF Ur Culture Indicated? Urine Glucose (NEGATIVE) mg/dL Urine HCG, Qual (Negative) - Progress Progress: improved Air Movement: good Progress Note: 01/16/22 22:11 She is given fluids. Feeling much better on reevaluation. Normal white count, no UTI. Ultrasound showed no acute findings with heart tone of 116 and no subchorionic bleeding. She is advised increase hydration, Tylenol as needed, pelvic rest and outpatient OB follow-up. Blood Culture(s) Obtained: No Antibiotics given: No Counseled pt/family regarding: lab results, diagnosis, need for follow-up, rad results - Departure Departure Disposition: Home Clinical Impression: Vaginal bleeding affecting early Condition: Stable Critical Care Time: No Referrals: IMANI PATEL MD [Primary Care Provider] - Follow Up with PCP/3 days SANJAY SU DO [Family Provider] - Follow up/PCP as directed (Call for appointment ) Instructions: Bleeding in Early (DC) Additional Instructions: Drink plenty of fluids to keep yourself well-hydrated. Follow-up with your OB for reevaluation. Return to ER for worsening bleeding or if having cramping etc. Prescriptions: Vit 93/Iron Fum/Folic [ Formula Tablet] 1 each PO DAILY 30 Days #30 tablet
[2022-01-16] MEDS ORDERED: Sodium Chloride 0.9% 1000 ML 1,000 ML ONE (20:11)
[2022-01-16 20:16] LABS: Basophil (Absolute #) 0.06 x10^3/uL (0-0.4); Eosinophil (Absolute #) 0 x10^3/uL (0-0.5); Hematocrit 39.7 % (35-47); Hemoglobin 13.5 g/dL (12.0-16.0); Lymphocyte (Absolute #) 1.87 x10^3/uL (1.0-4.6); Mean Corpuscular Hemoglobin 30.3 pg (26-32); Mean Platelet Volume 10.3 fL (7.5-11.0); Monocyte (Absolute #) 0.73 x10^3/uL (0.0-1.3); Monocytes % 9.8 % (0.0-12.0); Neutrophil % 64.1 % (36.0-66.0); Platelet Count 211 x10^3/uL (150-450); Red Blood Count 4.46 x10^6/uL (4.1-5.4); Red Cell Distribution Width 12.5 % (11.5-14.0); White Blood Count 7.5 x10^3/uL (4.0-10.5)
[2022-01-16 20:26] LABS: Bacteria RARE /HPF (NEGATIVE); Epithelial Cells RARE /HPF (FEW); Mucus SLIGHT /HPF (NEGATIVE)
[2022-01-16 20:27] LABS: Appearance CLEAR (CLEAR); Bilirubin NEGATIVE (NEGATIVE); Dipstick done @ ? MAIN LAB; Glucose NEGATIVE (NEGATIVE); Ketones NEGATIVE (NEGATIVE); Ph 6.5 (5-6); RBC NEGATIVE Ery/ul (0-5); Specific Gravity >=1.030 (1.005-1.025)
[2022-01-16 20:28] LABS: Nitrite NEGATIVE (NEGATIVE); Protein,Urine Dip NEGATIVE (Negative); Urine Cultured Indicated? NO; Urobilinogen 1 mg/dL (0-1)
[2022-01-16 20:36] LABS: ISTAT BUN 10 mg/dL (8-26); ISTAT CL 100 mmol/L (98-109); ISTAT CO2 26 mmol/L (24-29); ISTAT GLUC 90 mg/dL (70-105); ISTAT K 3.4 mmol/L (3.5-4.9); ISTAT NA 137 mmol/L (138-146)
[2022-01-16 20:37] LABS: ISTAT CREA 0.8 mg/dL (0.6-1.3)
[2022-01-16 21:59] VITALS: O2SAT 100
[2022-01-16 22:30] LABS: ABO TYPING B; Antibody Screen NEGATIVE (NEGATIVE); RH TYPING POSITIVE
[2022-01-16 22:35] VITALS: BP 107/71; PULSE 66
[2022-01-16 22:52] LABS: ALBUMIN 4.5 g/dL (3.5-5.0); ALKALINE PHOSPHATASE 60 U/L (38-126); ANION GAP 14.9 MEQ/L (5-15); BLOOD UREA NITROGEN 10 mg/dL (7-17); CHLORIDE 100 mmol/L (98-107); Calcium 9.2 mg/dL (8.4-10.2); Carbon Dioxide 23 mmol/L (22-30); Creatinine 1 0.75 mg/dL (0.52-1.04); EST GLOMERULAR FILTRATION RATE > 60.0 ML/MIN; Glucose 91 mg/dL (74-106); HCG, Quantitative (Inhouse) 37704 mIU/ml; Potassium 3.5 mmol/L (3.5-5.1); SGOT/AST 25 U/L (14-36); SGPT/ALT 26 U/L (0-35); SODIUM 135 mmol/L (137-145); Total Protein 7.5 g/dL (6.3-8.2)
--- NOTE | 2022-01-17 08:51 | XRAY ---
Indication: Vaginal bleeding and cramping. Two-dimensional transabdominal and transvaginal pelvic sonogram performed. Comparison: None Uterus anteverted with single intrauterine gestational sac, pole, and yolk sac. Mean crown-rump length is 0.60 cm corresponding to 6 weeks 3 days. heart rate 116 BPM. No abnormal subchorionic fluid. Incidental 1 cm cervical nabothian cyst. Right ovary sonographically unremarkable. Left ovary only visualized transabdominally and also unremarkable. Very tiny nonspecific cul-de-sac fluid. No suspicious adnexal mass. Impression: Single viable intrauterine measuring 6 weeks 3 days. Expected date confinement is September 18, 2022. Incidental cervical nabothian cyst. Nothing acute. Comment: Preliminary report was given.
== END 2022-01-16 22:35 | disposition home or self-care (01) ==
LOC: ED 19:27
DX: O20.9 Hemorrhage in early pregnancy, unspecified (principal); Z3A.01 Less than 8 weeks gestation of pregnancy; R35.0 Frequency of micturition
CPT/HCPCS: 36000; 36415; 76801; 80047; 80053; 81015; 81025; 84702; 85025; 86850; 86900; 86901; 96360; 96374; 99284

== ENCOUNTER 2022-05-07 06:40 | Emergency (ER) | payer OTHER ==
--- NOTE | 2022-05-07 07:21 | ERPHSYRPT ---
- History of Present Illness Time Seen by Provider: 05/07/22 07:21 Source: patient Exam Limitations: no limitations Patient Subjective Stated Complaint: pt states she has been having cough, shortness of breath, chest pressure, body aches, sore throat since thursday. states has been worse through the night. Triage Nursing Assessment: pt alert and oriented, answers questions approp. pt ambulatory with steady gait noted. skin pink warm and dry. respirations nonlabored with lungs cta. occasional hacking cough noted. redness ntoed to throat. Physician History: 27-year-old female presents to the ER with worsening shortness of breath over the past 3 days. Patient reports on Thursday she started to have headache and body aches. Her symptoms have progressed to chest congestion, productive cough and chest pressure. Patient is 22 weeks . She has tried [id number] Robitussin with some relief. T-max 99 at home. Patient had 1 episode of emesis in the ER today after a coughing spell. She denies any history of asthma. Timing/Duration: day(s) (3) Activities at Onset: rest Severity of Dyspnea-Max: moderate Severity of Dyspnea-Current: mild Possible Cause: illness exposure (children sick) Modifying Factors: Improves With: activity, coughing, exertion Associated Symptoms: cough, fever, wheezing, chills, heart racing, productive cough, No edema, No calf pain, No leg swelling Allergies/Adverse Reactions: amoxicillin [Amoxicillin] Allergy (Mild, Verified 05/07/22 06:58) morphine Allergy (Verified 05/07/22 06:58) pt has had morphine twice and states she had trouble breathing Hx Tetanus, Diphtheria Vaccination/Date Given: Yes Hx Influenza Vaccination/Date Given: Yes Hx Pneumococcal Vaccination/Date Given: No Immunizations Up to Date: Yes Travel Risk - International Travel Have you traveled outside of the country in past 3 weeks: No - Coronavirus Screening Are you exhibiting any of the following symptoms?: Yes Symptoms: Fever, Cough: New Onset, Shortness of Breath, Headaches/Body Aches/Fatigue Close contact with a COVID-19 positive Pt in past 14-21 Days: No - Vaccine Status Have you recieved a Covid-19 vaccination: Yes [employer]: Moderna - Vaccination Dates Date of 2cond Vaccination (if applicable): 2020 - Review of Systems Constitutional: Fever, Chills, Fatigue, Malaise Eyes: No Symptoms Ears, Nose, & Throat: Nose Congestion, Sinus Drainage, Throat Pain, Painful Swallowing, No Ear Pain Respiratory: Cough, Dyspnea, Dyspnea on Exertion ([place]), Wheezing Cardiac: No Edema, No Palpitations Abdominal/Gastrointestinal: Vomiting (1 post-tussive episode), No Abdominal Pain, No Nausea Genitourinary Symptoms: No Symptoms Musculoskeletal: Myalgias Skin: No Rash Neurological: Headache Psychological: No Symptoms Endocrine: No Symptoms Hematologic/Lymphatic: No Symptoms - Past Medical History Pertinent Past Medical History: No - Past Surgical History Past Surgical History: Yes Female Surgical History: Section Other Surgical History: c sections x2 - Social History Smoking Status: Never smoker Exposure to second hand smoke: No Drug Use: none Patient Lives Alone: No - Female History Hx Now: Yes Gestational Age: 22 weeks - Nursing Vital Signs Nursing Vital Signs: Initial Vital Signs Temperature 99.1 F 05/07/22 06:45 Pulse Rate 109 H 05/07/22 06:45 Respiratory Rate 16 05/07/22 06:45 Blood Pressure 114/87 05/07/22 06:45 O2 Sat by Pulse Oximetry 97 05/07/22 06:45 Pain Scale Pain Intensity 4 - Physical Exam General Appearance: no apparent distress Eye Exam: PERRL/EOMI Ears, Nose, Throat Exam: hearing grossly normal, nasal congestion, pharyngeal erythema, No tonsillar exudate, No tonsillar swelling Neck Exam: normal inspection, non-tender, supple, full range of motion Respiratory Exam: normal breath sounds, lungs clear, No respiratory distress Cardiovascular/Chest Exam: normal heart sounds, tachycardia, No edema Abdominal/Gastrointestinal Exam: soft, other (Gravid, FHT 170 by doppler), No tenderness Extremity Exam: no calf tenderness, No swelling, No kurt's sign Neurologic Exam: alert, oriented x 3, cooperative, normal mood/affect Skin Exam: normal color, warm, dry, No rash SpO2 Interpretation: normal SpO2: 97 O2 Delivery: Room Air - Course EKG Interpreted by Me: RATE (103), Sinus Tach, NORMAL AXIS, NORMAL INTERVALS, NORMAL QRS, NORMAL ST-T Rhythm Strip: Rate (102bpm), Sinus Tachycardia Ordered Tests: Active Orders 24 hr Category Date Time Status Running Rigger STAT Care 05/07/22 07:30 Active EKG-ER Only STAT Care 05/07/22 07:28 Active IV Insertion STAT Care 05/07/22 07:28 Active Pulse Oximetry (ED) STAT Care 05/07/22 07:28 Active CBC W DIFF Stat Lab 05/07/22 07:30 Completed CMP Stat Lab 05/07/22 07:30 Completed Medication Summary Generic Name Dose Route Start Last Admin Trade Name Freq PRN Reason Stop Dose Admin Guaifenesin 1,200 mg 05/07/22 10:00 05/07/22 08:57 Guaifenesin 600 Mg Tablet Er PO 06/06/22 09:59 1,200 mg BID CLAUDETTE Administration Sodium Chloride 1,000 mls @ 100 mls/hr 05/07/22 07:30 05/07/22 10:38 Sodium Chloride 0.9% 1000 Ml IV 06/06/22 07:29 Infused .Q10H CLAUDETTE Infusion Discontinued Medications Generic Name Dose Route Start Last Admin Trade Name Freq PRN Reason Stop Dose Admin Sodium Chloride 1,000 mls @ 999 mls/hr 05/07/22 08:21 05/07/22 08:27 Sodium Chloride 0.9% 1000 Ml IV 05/07/22 09:21 Not Given .Q1H1M STA Sodium Chloride 1,000 mls @ 999 mls/hr 05/07/22 09:56 05/07/22 11:12 Sodium Chloride 0.9% 1000 Ml IV 05/07/22 10:56 Infused .Q1H1M STA Infusion Lab/Rad Data: Laboratory Result Diagrams 05/07/22 07:30 05/07/22 07:30 Laboratory Results 05/07/22 05/07/22 05/07/22 Range/Units 07:39 07:30 07:30 WBC 8.2 (4.0-10.5) x10^3/uL RBC 4.39 (4.1-5.4) x10^6/uL Hgb 12.9 (12.0-16.0) g/dL Hct 38.6 (35-47) % MCV 87.9 (78-100) fL MCH 29.4 (26-32) pg MCHC 33.4 (32-36) g/dL RDW 12.9 (11.5-14.0) % Plt Count 199 (150-450) x10^3/uL MPV 10.6 (7.5-11.0) fL Gran % 83.9 H (36.0-66.0) % Immature Gran % (Auto) 0.5 H (0.00-0.4) % Nucleat RBC Rel Count 0.0 (0.00-0.1) % Eos # (Auto) 0 (0-0.5) x10^3/uL Immature Gran # (Auto) 0.04 H (0.00-0.03) x10^3u/L Absolute Lymphs (auto) 0.67 L (1.0-4.6) x10^3/uL Absolute Monos (auto) 0.60 (0.0-1.3) x10^3/uL Absolute Nucleated RBC 0.00 (0.00-0.01) x10^3u/L Lymphocytes % 8.1 L (24.0-44.0) % Monocytes % 7.3 (0.0-12.0) % Eosinophils % 0.0 (0.00-5.0) % Basophils % 0.2 (0.0-0.4) % Absolute Granulocytes 6.90 (1.4-6.9) x10^3/uL Basophils # 0.02 (0-0.4) x10^3/uL Sodium 132 L (137-145) mmol/L Potassium 3.7 (3.5-5.1) mmol/L Chloride 105 (98-107) mmol/L Carbon Dioxide 20 L (22-30) mmol/L Anion Gap 11.7 (5-15) MEQ/L BUN 5 L (7-17) mg/dL Creatinine 0.46 L (0.52-1.04) mg/dL Estimated GFR > 60.0 ML/MIN Glucose 106 (74-106) mg/dL Calcium 8.9 (8.4-10.2) mg/dL Total Bilirubin 0.30 (0.2-1.3) mg/dL AST 24 (14-36) U/L ALT 32 (0-35) U/L Alkaline Phosphatase 72 (38-126) U/L Serum Total Protein 7.3 (6.3-8.2) g/dL Albumin 3.9 (3.5-5.0) g/dL Influenza Type A Ag POSITIVE (NEGATIVE) Influenza Type B Ag NEGATIVE (NEGATIVE) RSV (PCR) NEGATIVE (Negative) SARS-CoV-2 (PCR) NEGATIVE (NEGATIVE) - Progress Progress: unchanged Air Movement: good Progress Note: Lab work showed no signs of bacterial infection with a normal white count. She did have a bicarb of 20 so normal saline bolus was ordered. Since patient is on day 3-4 of illness discussed Tamiflu not providing benefit to her at this time. Encourage patient to take Mucinex DM 1200 mg twice a day, this is safe to use in . Stressed the importance of oral hydration recommended Sonia pot or nasal saline spray. 05/07/22 08:29 05/07/22 11:24 2nd liter of NS completed, patient stable. Blood Culture(s) Obtained: No Antibiotics given: No Counseled pt/family regarding: lab results, diagnosis - Departure Departure Disposition: Home Clinical Impression: Influenza A, and not yet delivered in second trimester, Dehydration Condition: Good Critical Care Time: No Referrals: IMANI PATEL MD [Primary Care Provider] - Follow up/PCP as directed Instructions: and the Flu Additional Instructions: You were evaluated in the Emergency Department today for your congestion, cough and fevers. Your evaluation suggests that your symptoms are due to influenza A, which will improve on its own with rest and fluids. Discussed case w/ OB Dr. Conner and he asks that you reschedule your appointment on Thursday. We recommend you take Tylenol 650mg every 6 hours as needed for fever and Mucinex DM 1,200mg BID for cough and congestion. Please schedule an appointment for follow up with your primary care physician this week. Return to the Emergency Department if you experience worsening cough, fever 100.4 F or greater not controlled by Tylenol, recurrent vomiting, chest pain, shortness of breath, or any other concerning symptoms.
[2022-05-07] MEDS ORDERED: Sodium Chloride 0.9% 1000 ML 1,000 ML IV SCH (07:30)
[2022-05-07] MEDS ORDERED: Sodium Chloride 0.9% 1000 ML 1,000 ML ONE ×2 (07:37→10:02)
[2022-05-07 07:40] LABS: Basophil (Absolute #) 0.02 x10^3/uL (0-0.4); Eosinophil (Absolute #) 0 x10^3/uL (0-0.5); Hematocrit 38.6 % (35-47); Hemoglobin 12.9 g/dL (12.0-16.0); Lymphocyte (Absolute #) 0.67 x10^3/uL (1.0-4.6); Lymphocytes % 8.1 % (24.0-44.0); Mean Cell Volume 87.9 fL (78-100); Mean Corpuscular Hemoglobin 29.4 pg (26-32); Mean Corpuscular Hgb Concent. 33.4 g/dL (32-36); Mean Platelet Volume 10.6 fL (7.5-11.0); Monocytes % 7.3 % (0.0-12.0); Neutrophil % 83.9 % (36.0-66.0); Platelet Count 199 x10^3/uL (150-450); Red Blood Count 4.39 x10^6/uL (4.1-5.4); Red Cell Distribution Width 12.9 % (11.5-14.0); White Blood Count 8.2 x10^3/uL (4.0-10.5)
[2022-05-07 08:04] LABS: ALBUMIN 3.9 g/dL (3.5-5.0); ALKALINE PHOSPHATASE 72 U/L (38-126); ANION GAP 11.7 MEQ/L (5-15); BLOOD UREA NITROGEN 5 mg/dL (7-17); CHLORIDE 105 mmol/L (98-107); Calcium 8.9 mg/dL (8.4-10.2); Carbon Dioxide 20 mmol/L (22-30); Creatinine 1 0.46 mg/dL (0.52-1.04); EST GLOMERULAR FILTRATION RATE > 60.0 ML/MIN; Glucose 106 mg/dL (74-106); Potassium 3.7 mmol/L (3.5-5.1); SGOT/AST 24 U/L (14-36); SGPT/ALT 32 U/L (0-35); SODIUM 132 mmol/L (137-145); Total Protein 7.3 g/dL (6.3-8.2)
[2022-05-07 08:16] LABS: INFLUENZA B NEGATIVE (NEGATIVE); RESPIRATORY SYNCTIAL VIRUS NEGATIVE (Negative); SARS-CoV-2 Xpert Express NEGATIVE (NEGATIVE)
[2022-05-07] MEDS ORDERED: Sodium Chloride 0.9% 1000 ML 1,000 ML IV STA ×2 (08:21→09:56)
[2022-05-07 08:24] LABS: INFLUENZA A POSITIVE (NEGATIVE)
[2022-05-07] MEDS ORDERED: Mucinex 600MG ER Tabs PO SCH (10:00)
[2022-05-07 11:33] VITALS: BP 94/60; PULSE 100; O2SAT 96
== END 2022-05-07 11:38 | disposition home or self-care (01) ==
LOC: ED 06:40
DX: O99.512 Diseases of the respiratory system complicating pregnancy, second trimester (principal); Z3A.22 22 weeks gestation of pregnancy; J10.1 Influenza due to other identified influenza virus with other respiratory manifestations; E86.0 Dehydration; R06.02 Shortness of breath; R51.9 Headache, unspecified; M79.10 Myalgia, unspecified site; R05.1 Acute cough
CPT/HCPCS: 0241U; 36000; 36415; 80053; 85025; 93005; 93041; 94760; 96360; 96361; 99284; A9270-GY

== ENCOUNTER 2022-09-28 19:52 | Emergency (ER) | payer OTHER ==
[2022-09-28] MEDS ORDERED: EMLA Cream 5 GM TP ONE ×2 (20:28→20:32)
--- NOTE | 2022-09-28 20:29 | ERPHSYRPT ---
- History of Present Illness Time Seen by Provider: 09/28/22 20:29 Source: patient Exam Limitations: no limitations Physician History: This is a 27-year-old white female who is approximately 6 weeks and was unloading a tiller from the back of a truck and scraped the outer aspect of her left knee causing her to have a laceration measuring approximately 2-1/2 cm in length. Patient thinks her tetanus status is up-to-date but she is not sure. She will find this out and we told her that she has 10 days to determine if she actually needs a tetanus update. Timing/Duration: today Quality: painful Severity: mild Location: extremities (Outer aspect skin left knee) Associated Symptoms: denies symptoms Allergies/Adverse Reactions: amoxicillin [Amoxicillin] Allergy (Mild, Verified 09/28/22 20:40) morphine Allergy (Verified 09/28/22 20:40) pt has had morphine twice and states she had trouble breathing Hx Tetanus, Diphtheria Vaccination/Date Given: Yes Hx Influenza Vaccination/Date Given: Yes Hx Pneumococcal Vaccination/Date Given: No Travel Risk - International Travel Have you traveled outside of the country in past 3 weeks: No - Coronavirus Screening Are you exhibiting any of the following symptoms?: No Close contact with a COVID-19 positive Pt in past 14-21 Days: No - Vaccine Status Have you recieved a Covid-19 vaccination: Yes Sewer Cleaner: Moderna - Vaccination Dates Date of 2cond Vaccination (if applicable): 12/2019 - Review of Systems Constitutional: No Symptoms Eyes: No Symptoms Ears, Nose, & Throat: No Symptoms Respiratory: No Symptoms Cardiac: No Symptoms Abdominal/Gastrointestinal: No Symptoms Genitourinary Symptoms: No Symptoms Musculoskeletal: No Symptoms Skin: Other (Laceration 2.5 cm skin outer aspect left knee) Neurological: No Symptoms Psychological: No Symptoms Endocrine: No Symptoms Hematologic/Lymphatic: No Symptoms Immunological/Allergic: No Symptoms All Other Systems: Reviewed and Negative - Past Medical History Pertinent Past Medical History: Yes Neurological History: No Pertinent History ENT History: Other Cardiac History: No Pertinent History Respiratory History: No Pertinent History Endocrine Medical History: No Pertinent History Musculoskeletal History: No Pertinent History GI Medical History: No Pertinent History History: No Pertinent History Psycho-Social History: No Pertinent History - Past Surgical History Past Surgical History: Yes Cardiac: No Pertinent History Respiratory: No Pertinent History Gastrointestinal: No Pertinent History Genitourinary: No Pertinent History Musculoskeletal: No Pertinent History Female Surgical History: No Pertinent History Other Surgical History: c sections x2 - Social History Smoking Status: Former smoker Exposure to second hand smoke: No Drug Use: none Patient Lives Alone: No - Nursing Vital Signs Nursing Vital Signs: Initial Vital Signs Temperature 97.1 F 09/28/22 20:11 Pulse Rate 111 H 09/28/22 20:11 Respiratory Rate 16 09/28/22 20:11 Blood Pressure 111/71 09/28/22 20:11 O2 Sat by Pulse Oximetry 99 09/28/22 20:11 Pain Scale Pain Intensity 4 - Physical Exam General Appearance: no apparent distress, alert Eye Exam: PERRL/EOMI, eyes nml inspection Ears, Nose, Throat Exam: normal ENT inspection, moist mucous membranes Neck Exam: normal inspection, non-tender, supple, full range of motion Respiratory Exam: normal breath sounds, lungs clear, airway intact, No chest tenderness, No respiratory distress Cardiovascular Exam: regular rate/rhythm, normal heart sounds, normal peripheral pulses Gastrointestinal/Abdomen Exam: No tenderness Pelvic Exam: not done Rectal Exam: not done Back Exam: normal inspection, normal range of motion, No CVA tenderness, No vertebral tenderness Extremity Exam: normal range of motion, pelvis stable, lacerations (2.5 cm laceration skin outer aspect left knee. No active bleeding. No foreign body.), other (Patient is neurovascularly intact) Neurologic Exam: alert, oriented x 3, cooperative, retail department manager II-XII nml as tested, nor mal mood/affect, nml cerebellar function, nml station & gait, sensation nml Skin Exam: laceration (See above) Lymphatic Exam: No adenopathy SpO2 Interpretation: normal SpO2: 99 O2 Delivery: Room Air Procedures - Laceration/Wound Repair Left Knee Time of Procedure: 22:05 Wound Location: Left, upper leg (Skin outer aspect left knee) Wound Length (cm): 2.5 Wound's Depth, Shape: superficial, linear, into subcut Wound Explored: clean (Evaluation was made in a bloodless field to the base) Irrigated: Yes Hibiclens Prep: Yes Anesthesia: 1% Lidocaine (3) Volume Anesthetic (ccs): 3 Wound Repaired With: Helene (5. Helene placed) Layer Closure?: No - Course Nursing assessment & vital signs reviewed: Yes Ordered Tests: Active Orders 24 hr Category Date Time Status Wound Care STAT Care 09/28/22 22:13 Ordered KNEE (1 OR 2 VIEW) Stat Exams 09/28/22 21:23 Taken Medication Summary Discontinued Medications Generic Name Dose Route Start Last Admin Trade Name Bernardino PRN Reason Stop Dose Admin Lidocaine/Prilocaine 2.5 gm 09/28/22 20:28 09/28/22 20:42 Lidocaine/Prilocaine 5 Gm 5 Gm Tube TP 09/28/22 20:29 2.5 gm STAT ONE Administration Lidocaine/Prilocaine Confirm 09/28/22 20:32 Lidocaine/Prilocaine 5 Gm 5 Gm Tube Administered 09/28/22 20:33 Dose 5 gm TP .STK-MED ONE - Progress Progress: improved Progress Note: 09/28/22 22:00 X-ray left knee was interpreted by me. There is no evidence of any acute fracture or dislocation. There is also no evidence of any radiopaque foreign body material. 09/28/22 22:15 This patient's medical issue is 1 of low complexity. The level of complexity and the work-up performed is based on the review of the patient's past medical history, review of the patient's medication list, review of the patient's drug allergy list, history of present illness and physical findings on examination. The patient underwent an x-ray of the left knee to rule out any radiopaque f oreign body material. Patient's abdomen was shielded as she is 6 weeks . Counseled pt/family regarding: diagnosis, need for follow-up, rad results Medical Desision Making - Independent Historian Additional History obtained from: Spouse - Diagnostic Testing Diagnostic test were ordered, analyzed, and reviewed by me: Yes Radiological Interpretation: Interpreted by me - Risk of complications Minimal Risk: Minimal risk of morbidity - Departure Departure Disposition: Home Clinical Impression: Laceration of left knee Condition: Stable Critical Care Time: No Referrals: CHUY HANSEN NP [Primary Care Provider] - Follow up/PCP as directed Additional Instructions: Keep current pressure dressing in place for 24 hours. Tomorrow evening, at this time, may remove the dressing and shower allowing the soap and water to slide over the laceration repair site. Blot dry use a hairdryer. Once dried, placed a thin layer of antibiotic ointment to the area then reapply a nonstick bandage. Staple removal in 8 to 10 days. May use Tylenol for pain control.
[2022-09-28] MEDS ORDERED: BACIGUENT PACKET TP ONE (22:13)
[2022-09-28] MEDS ORDERED: XYLOCAINE 1% HCL 20 ML MDV IJ ONE (22:13)
[2022-09-28] MEDS ORDERED: BACIGUENT PACKET ONE (22:14)
[2022-09-28] MEDS ORDERED: XYLOCAINE 1% HCL 20 ML MDV ONE (22:14)
[2022-09-28 22:21] VITALS: BP 121/71; PULSE 72; O2SAT 98
--- NOTE | 2022-09-29 08:34 | XRAY ---
Indication: Pain following injury. 6 weeks . Comparison: None 2 view left knee obtained with patient's abdomen shielded. Small posterior fabella. No other bony, articular, or soft tissue abnormalities.
== END 2022-09-28 22:25 | disposition home or self-care (01) ==
LOC: ED 19:52
DX: S81.012A Laceration without foreign body, left knee, initial encounter (principal); W26.8XXA Contact with other sharp object(s), not elsewhere classified, initial encounter; Z33.1 Pregnant state, incidental
CPT/HCPCS: 12001; 73560; 96372; 99283; A9270-GY

== ENCOUNTER 2023-01-29 17:50 | Observation (INO) | payer OTHER ==
[2023-01-29 18:33] VITALS: PULSE 96; TEMP 98.7; O2SAT 98
[2023-01-29] MEDS ORDERED: Lactated Ringers 1,000 ML IV ONE ×2 (18:36→19:16)
[2023-01-29 19:12] LABS: Appearance Turbid (Clear); Bacteria None Seen /HPF (None Seen); Bilirubin Negative (Negative); Blood Negative (Negative); Epithelial Cells Rare /HPF (None Seen); Glucose, Urine Negative (Negative); Hyaline Casts NONE SEEN /LPF (0-2); Ketones Negative (Negative); Leukocyte Esterase Trace (Negative); Nitrite Negative (Negative); Protein,Urine Dip Negative (Negative); RBC 0-2 /HPF (0-5); Specific Gravity 1.015 (1.005-1.030)
[2023-01-29 19:15] LABS: ADD URINE CULTURE? NO (NO)
[2023-01-29 20:01] VITALS: RESP 18
[2023-01-29 20:43] VITALS: BP 116/64
--- NOTE | 2023-01-30 09:25 | XRAY ---
Indication: Cramping. Cervical length. Limited OB ultrasound demonstrates a single intrauterine with heart rate 146 bpm. Cervical length is 4.1 cm.
== END 2023-01-29 21:00 | disposition home or self-care (01) ==
LOC: OB 17:50
PROVIDERS: ADMIT Obstetrics & Gynecology; ATTEND Obstetrics & Gynecology
DX: Z34.82 Encounter for supervision of other normal pregnancy, second trimester (principal); Z3A.24 24 weeks gestation of pregnancy
CPT/HCPCS: 76815; 81001; G0378; G0379

== ENCOUNTER 2023-02-14 16:20 | Observation (INO) | payer OTHER ==
[2023-02-14 17:13] VITALS: BP 141/76; PULSE 87; RESP 18; TEMP 97.5; O2SAT 98
== END 2023-02-14 18:20 | disposition home or self-care (01) ==
LOC: OB 16:20
PROVIDERS: ADMIT Obstetrics & Gynecology; ATTEND Obstetrics & Gynecology
DX: Z34.82 Encounter for supervision of other normal pregnancy, second trimester (principal); Z3A.26 26 weeks gestation of pregnancy
CPT/HCPCS: G0378; G0379

== ENCOUNTER 2023-04-24 08:43 | Observation (INO) | payer OTHER ==
[2023-04-24] MEDS ORDERED: Lactated Ringers 1,000 ML IV ONE (10:23)
[2023-04-24] MEDS ORDERED: Zofran 4 MG/2 ML VIAL IV PRN (10:24)
[2023-04-24 10:39] LABS: Absolute Neutrophil Ct (ANC) 8.34 x10^3/uL (1.4-6.9); BASOPHIL % 0.4 % (0.0-0.4); Basophil (Absolute #) 0.04 x10^3/uL (0-0.4); Eosinophil (Absolute #) 0 x10^3/uL (0-0.5); Hematocrit 35.1 % (35-47); Hemoglobin 11.7 g/dL (12.0-16.0); IMMATURE GRAN # 0.06 x10^3u/L (0.00-0.03); IMMATURE GRAN % 0.6 % (0.00-0.4); Lymphocyte (Absolute #) 1.79 x10^3/uL (1.0-4.6); Lymphocytes % 16.4 % (24.0-44.0); Mean Cell Volume 86.5 fL (78-100); Mean Corpuscular Hemoglobin 28.8 pg (26-32); Mean Corpuscular Hgb Concent. 33.3 g/dL (32-36); Mean Platelet Volume 10.9 fL (7.5-11.0); Monocyte (Absolute #) 0.66 x10^3/uL (0.0-1.3); Monocytes % 6.1 % (0.0-12.0); Neutrophil % 76.5 % (36.0-66.0); Platelet Count 241 x10^3/uL (150-450); Red Blood Count 4.06 x10^6/uL (4.1-5.4); Red Cell Distribution Width 13.2 % (11.5-14.0); White Blood Count 10.9 x10^3/uL (4.0-10.5)
[2023-04-24 11:32] LABS: ALBUMIN 3.5 g/dL (3.5-5.0); ANION GAP 12.8 MEQ/L (5-15); BILIRUBIN,TOTAL 0.4 mg/dL (0.2-1.3); Calcium 9.7 mg/dL (8.4-10.2); Creatinine 1 0.65 mg/dL (0.52-1.04); EST GLOMERULAR FILTRATION RATE 121.4 ML/MIN; Potassium 3.6 mmol/L (3.5-5.1); Total Protein 6.8 g/dL (6.3-8.2)
[2023-04-24] MEDS ORDERED: Lactated Ringers 1,000 ML IV SCH (12:00)
[2023-04-24 12:44] LABS: INFLUENZA A NEGATIVE (NEGATIVE); INFLUENZA B NEGATIVE (NEGATIVE); RESPIRATORY SYNCTIAL VIRUS NEGATIVE (NEGATIVE); SARS-CoV-2 Xpert Express NEGATIVE (NEGATIVE)
[2023-04-24 14:06] LABS: Appearance Clear (Clear); Bacteria None Seen /HPF (None Seen); Bilirubin Negative (Negative); Blood Trace (Negative); Epithelial Cells None Seen /HPF (None Seen); Glucose, Urine Negative (Negative); Hyaline Casts NONE SEEN /LPF (0-2); Ketones Negative (Negative); Leukocyte Esterase Trace (Negative); Nitrite Negative (Negative); Protein,Urine Dip Negative (Negative); Specific Gravity 1.015 (1.005-1.030); Urobilinogen 0.2 mg/dL (0.2); WBC 0-2 /HPF (0-5)
[2023-04-24 14:08] LABS: ADD URINE CULTURE? YES (NO)
[2023-04-24 14:48] VITALS: RESP 18
--- NOTE | 2023-04-24 16:35 | XRAY ---
Indication: Abdominal cramping. Ultrasound biophysical profile study performed. Single intrauterine with heart rate 137 BPM. Four-quadrant BLADIMIR is 11.2 cm, largest pocket 4.8 cm. 2 points given for breathing, movements, tone, and amniotic fluid volume. Impression: Total biophysical profile score is 8 out of 8.
[2023-04-24 17:44] VITALS: O2SAT 97
[2023-04-24 18:05] VITALS: BP 125/62; PULSE 79; TEMP 97.8
[2023-04-24] MEDS ORDERED: TYLENOL EXTRA STRENGTH 500 MG PO PRN (20:36)
[2023-04-24] MEDS ORDERED: TYLENOL EXTRA STRENGTH 500 MG ONE (20:37)
== END 2023-04-24 21:06 | disposition home or self-care (01) ==
LOC: OB 08:43
PROVIDERS: ADMIT Obstetrics & Gynecology; ATTEND Family Medicine
DX: Z34.83 Encounter for supervision of other normal pregnancy, third trimester (principal); Z3A.36 36 weeks gestation of pregnancy; Z20.828 Contact with and (suspected) exposure to other viral communicable diseases
CPT/HCPCS: 0241U; 36415; 76819; 80053; 81001; 85025; 87086; 99213; G0378; A9270-GY

== ENCOUNTER 2023-05-07 05:09 | Inpatient (IN) | payer OTHER ==
[~2023-05-07 05:09] MED LIST changes: -BICITRA 30 ML CUP PO SCH; -Lactated Ringers 1,000 ML IV ONE; -Pepcid 20 MG VIAL IV SCH; -Reglan 10 MG/2 ML IV SCH
[2023-05-07 05:51] LABS: Hematocrit 34.1 % (35-47); Hemoglobin 11.1 g/dL (12.0-16.0); Mean Cell Volume 85.9 fL (78-100); Mean Corpuscular Hgb Concent. 32.6 g/dL (32-36); Mean Platelet Volume 10.8 fL (7.5-11.0); Platelet Count 232 x10^3/uL (150-450); Red Blood Count 3.97 x10^6/uL (4.1-5.4); Red Cell Distribution Width 13.5 % (11.5-14.0); White Blood Count 11.8 x10^3/uL (4.0-10.5)
[2023-05-07] MEDS ORDERED: Lactated Ringers 1,000 ML IV SCH (06:00)
[2023-05-07 06:04] LABS: Appearance CLEAR (CLEAR); Bilirubin NEGATIVE (NEGATIVE); Glucose NEGATIVE (NEGATIVE); Ketones NEGATIVE (NEGATIVE); RBC SMALL Ery/ul (0-5); Specific Gravity 1.025 (1.005-1.025)
[2023-05-07 06:05] LABS: Nitrite NEGATIVE (NEGATIVE); Protein,Urine Dip NEGATIVE (Negative); Urobilinogen 0.2 mg/dL (0-1)
[2023-05-07 06:12] LABS: ADD URINE CULTURE? NO (NO); Bacteria Moderate /HPF (None Seen); Epithelial Cells Few /HPF (None Seen); Hyaline Casts NONE SEEN /LPF (0-2)
[2023-05-07 06:19] LABS: INR 0.86 (0.8-3.0); PROTIME 9.5 SECONDS (9.4-12.5); PTT 22.3 SECONDS (25.1-36.5)
[2023-05-07 06:19] LABS: Amphetamine,Urine NEGATIVE (NEGATIVE); Barbiturate,Urine NEGATIVE (NEGATIVE); Benzodiazepine,Urine NEGATIVE (NEGATIVE); Cocaine,Urine NEGATIVE (NEGATIVE); Methadone,Urine NEGATIVE (NEGATIVE); Opiate,Urine NEGATIVE (NEGATIVE); PCP,Urine NEGATIVE (NEGATIVE); THC,Urine NEGATIVE (NEGATIVE)
[2023-05-07 06:43] LABS: ABO TYPING B; Antibody Screen NEGATIVE (NEGATIVE); RH TYPING POSITIVE
[2023-05-07] MEDS ORDERED: SOD CITRATE-CITRIC ACID SOLN PO SCH (07:00)
[2023-05-07] MEDS ORDERED: CLINDAMYCIN-D5W 900 MG/50 ML*** 900 MG/50 ML BAG IV SCH (07:00)
[2023-05-07] MEDS ORDERED: Pepcid 20 MG VIAL IV SCH (07:00)
[2023-05-07] MEDS ORDERED: Reglan 10 MG/2 ML IV SCH (07:00)
[2023-05-07] MEDS ORDERED: PHENYLEPHRINE HCL ONE (07:53)
[2023-05-07] MEDS ORDERED: Zofran 4 MG/2 ML VIAL ONE (07:53)
[2023-05-07] MEDS ORDERED: SUBLIMAZE 100 MCG/2 ML ONE (07:53)
[2023-05-07] MEDS ORDERED: Decadron 4 MG INJ ONE ×2 (07:53→07:54)
[2023-05-07] MEDS ORDERED: Naropin 0.5% 30 ML VIAL ONE (07:53)
[2023-05-07] MEDS ORDERED: Pitocin 10 UNITS/ML ONE (07:53)
[2023-05-07] MEDS ORDERED: TORAdol 30 mg Injection ONE (07:53)
[2023-05-07] MEDS ORDERED: BENADRYL 50 MG/ML IV PRN (08:00)
[2023-05-07] MEDS ORDERED: CORTISONE 1% CREAM TP PRN (08:00)
[2023-05-07] MEDS ORDERED: Nubain 10 MG/ML IV PRN (08:00)
[2023-05-07] MEDS ORDERED: Dextrose 5%-Lr IV Solution 1000 ML 1,000 ML IV SCH (08:00)
[2023-05-07] MEDS ORDERED: Narcan 0.4 MG/ML IV PRN (08:00)
[2023-05-07] MEDS ORDERED: TYLENOL EXTRA STRENGTH 500 MG PO PRN (08:00)
[2023-05-07] MEDS ORDERED: LANSINOH 40 GM TOP PRN (08:00)
[2023-05-07] MEDS ORDERED: CLARITIN 10 MG PO PRN (08:00)
[2023-05-07] MEDS ORDERED: DEMEROL 50 MG IV PRN (08:00)
[2023-05-07] MEDS ORDERED: HOLD NARCOTIC ANALGESICS AND SEDATIVES X24 HR MC PRN (08:00)
[2023-05-07] MEDS ORDERED: NORCO 5/325 MG PO PRN (08:00)
[2023-05-07] MEDS ORDERED: Zofran 4 MG/2 ML VIAL IV PRN (08:00)
[2023-05-07] MEDS ORDERED: PERCOCET TABLET 5/325MG PO PRN (08:00)
[2023-05-07 11:28] LABS: Appearance CLEAR (CLEAR); Bilirubin NEGATIVE (NEGATIVE); Glucose NEGATIVE (NEGATIVE)
[2023-05-07 11:29] LABS: Ketones NEGATIVE (NEGATIVE); Nitrite NEGATIVE (NEGATIVE); Protein,Urine Dip NEGATIVE (Negative); RBC SMALL Ery/ul (0-5); Specific Gravity 1.025 (1.005-1.025); Urobilinogen 0.2 mg/dL (0-1)
[2023-05-07 11:30] LABS: Bacteria None Seen /HPF (None Seen); Epithelial Cells Rare /HPF (None Seen); Hyaline Casts NONE SEEN /LPF (0-2)
[2023-05-07] MEDS ORDERED: TORAdol 30 mg Injection IV PRN ×2 (13:35→17:45)
[2023-05-07] MEDS: FERREX 150 PO SCH (14:24)
[2023-05-07] MEDS: CLINDAMYCIN-D5W 900 MG/50 ML*** 900 MG/50 ML BAG IV SCH ×2 (16:39→23:51)
[2023-05-07] MEDS: Docusate Sodium 100 MG PO SCH (21:20)
[2023-05-07] MEDS: MOTRIN 400 MG PO PRN (21:22)
[2023-05-08 05:11] LABS: BASOPHIL % 0.2 % (0.0-0.4); Basophil (Absolute #) 0.04 x10^3/uL (0-0.4); Eosinophil (Absolute #) 0.01 x10^3/uL (0-0.5); Hematocrit 28.7 % (35-47); Hemoglobin 9.2 g/dL (12.0-16.0); IMMATURE GRAN # 0.18 x10^3u/L (0.00-0.03); IMMATURE GRAN % 0.8 % (0.00-0.4); Lymphocyte (Absolute #) 2.82 x10^3/uL (1.0-4.6); Lymphocytes % 12.6 % (24.0-44.0); Mean Cell Volume 85.4 fL (78-100); Mean Corpuscular Hemoglobin 27.4 pg (26-32); Mean Corpuscular Hgb Concent. 32.1 g/dL (32-36); Mean Platelet Volume 11.3 fL (7.5-11.0); Monocyte (Absolute #) 1.45 x10^3/uL (0.0-1.3); Monocytes % 6.5 % (0.0-12.0); Neutrophil % 79.9 % (36.0-66.0); Platelet Count 230 x10^3/uL (150-450); Red Blood Count 3.36 x10^6/uL (4.1-5.4); Red Cell Distribution Width 13.5 % (11.5-14.0); White Blood Count 22.3 x10^3/uL (4.0-10.5)
--- NOTE | 2023-05-08 08:05 | PCM.NOTE ---
Date and Time: 05/08/23802 Subjective Assessment: pod 1 sp csection pt resting in bed and doing well able to ambulate and tolerate diet. vss afebrile abd; soft incision with steristrips intact nondistended uterus; firm lochia; mild hgb. 9.3 a/p sp csection pod 1 anticipate discharge tomorrow should fu with dr white for incision check and removal of dressing OBJECTIVE DATA Vital Signs: Vital Signs - 24 hr Temp Pulse Resp BP Pulse Ox 05/08/23 06:49 98 05/08/23 06:00 98 05/08/23 05:00 98.4 F 77 17 117/58 98 05/08/23 04:00 96 05/08/23 03:00 96 05/08/23 02:00 95 05/08/23 01:00 72 16 108/56 95 05/08/23 00:00 97 05/07/23 23:00 17 99 05/07/23 20:00 98.0 F 75 18 103/62 98 05/07/23 19:00 100 05/07/23 18:00 96 05/07/23 17:00 97.5 F 69 14 121/66 98 05/07/23 15:00 98 05/07/23 14:00 98 05/07/23 13:00 97.5 F 72 12 116/61 99 05/07/23 12:00 97.5 F 68 12 113/53 98 05/07/23 11:30 97.9 F 70 14 116/61 97 05/07/23 11:00 97.7 F 81 14 97/55 99 05/07/23 10:45 97.6 F 66 14 110/56 97 05/07/23 10:30 97.7 F 80 14 128/54 98 05/07/23 10:15 97.8 F 70 14 116/56 98 05/07/23 10:00 98 Pain Assessment - Last Documented Pain Intensity [Bilateral 4 Lower] Pain Intensity 0 Pain Scale Used 0-10 Pain Scale Intake and Output: Intake & Output 05/05/23 05/06/23 05/07/23 05/08/23 11:59 11:59 11:59 11:59 Intake Total 0 1600 Output Total 1250 Balance 0 350 Weight 97.522 kg Lab Results: Lab Results-Last 24 Hours 05/07/23 05/08/23 Range/Units 08:30 04:24 WBC 22.3 H (4.0-10.5) x10^3/uL RBC 3.36 L (4.1-5.4) x10^6/uL Hgb 9.2 L (12.0-16.0) g/dL Hct 28.7 L (35-47) % MCV 85.4 (78-100) fL MCH 27.4 (26-32) pg MCHC 32.1 (32-36) g/dL RDW 13.5 (11.5-14.0) % Plt Count 230 (150-450) x10^3/uL MPV 11.3 H (7.5-11.0) fL Gran % 79.9 H (36.0-66.0) % Immature Gran % (Auto) 0.8 H (0.00-0.4) % Nucleat RBC Rel Count 0.0 (0.00-0.1) % Eos # (Auto) 0.01 (0-0.5) x10^3/uL Immature Gran # (Auto) 0.18 H (0.00-0.03) x10^3u/L Absolute Lymphs (auto) 2.82 (1.0-4.6) x10^3/uL Absolute Monos (auto) 1.45 H (0.0-1.3) x10^3/uL Absolute Nucleated RBC 0.00 (0.00-0.01) x10^3u/L Lymphocytes % 12.6 L (24.0-44.0) % Monocytes % 6.5 (0.0-12.0) % Eosinophils % 0.0 (0.00-5.0) % Basophils % 0.2 (0.0-0.4) % Absolute Granulocytes 17.80 H (1.4-6.9) x10^3/uL Basophils # 0.04 (0-0.4) x10^3/uL Urine Color YELLOW (YELLOW) Urine Appearance CLEAR (CLEAR) Urine pH 7.0 (5-6) Ur Specific [place] 1.025 (1.005-1.025) POC Urine Protein Conf NEGATIVE (Negative) Urine Ketones NEGATIVE (NEGATIVE) Urine Nitrite NEGATIVE (NEGATIVE) Urine Bilirubin NEGATIVE (NEGATIVE) Urine Urobilinogen 0.2 (0-1) mg/dL Urine Leukocytes NEGATIVE (NEGATIVE) U Hyaline Cast (Auto) NONE SEEN (0-2) /LPF Urine RBC SMALL A (0-5) Otis/ul Urine Microscopic RBC 11-20 A (0-5) /HPF Urine Microscopic WBC 3-5 (0-5) /HPF Ur Epithelial Cells Rare (None Seen) /HPF Urine Bacteria None Seen (None Seen) /HPF Urine Glucose NEGATIVE (NEGATIVE) mg/dL Assessment/Plan (1) S/P repeat low transverse Current Visit: Yes Status: Acute Code(s): Z98.891 - HISTORY OF UTERINE SCAR FROM PREVIOUS SURGERY
--- NOTE | 2023-05-08 08:19 | OP ---
SURGERY DATE/TIME: 05/07/2023 0815 PREOPERATIVE DIAGNOSIS: Intrauterine at 38 weeks gestation with previous section x2 with a previous history of demise at 27 weeks gestation, advising delivery by MFM (maternal- medicine specialist) at this time. POSTOPERATIVE DIAGNOSIS: Intrauterine at 38 weeks gestation with previous section x2 with a previous history of demise at 27 weeks gestation, advising delivery by MFM (maternal- medicine specialist) at this time. PROCEDURE: Repeat section, low flap transverse uterine incision, Pfannenstiel skin incision. SURGEON: Rajesh Conner D.O. OFFICE SERVICES REPRESENTATIVE: Thu Hernandez, assistant professor surgical technology. ANESTHESIA: Spinal. QUANTITATIVE ESTIMATED BLOOD LOSS: 343 cc. COMPLICATIONS: None. INDICATIONS: The risks, benefits, indications and alternatives of the procedure were reviewed with the patient prior to procedure. The patient understood the risk of infection, bleeding, bowel injury, bladder injury, ureteral injury, pelvic infection, thromboembolic disorder associated with this surgery and desires to have this surgery as a possible means to alleviate her current medical condition. DESCRIPTION OF PROCEDURE AND FINDINGS: At this point the patient is taken to the operating room where her spinal anesthesia was found to be adequate. She was then prepped and draped in normal sterile fashion in the dorsal supine position with a leftward tilt. A Pfannenstiel skin incision is made with a scalpel and carried through to the underlying layer of the fascia with a Bovie. The fascia was then incised in the midline and the incision extended laterally with Jacobo scissors. The superior aspect of the fascial incision was then grasped Bartolo clamps elevated and the underlying rectus muscles dissected off bluntly. Attention is then turned to the inferior aspect of this incision which in similar fashion was grasped, tented up with Bartolo clamps and the rectus muscles dissected off bluntly. The rectus muscles were then at the midline and the peritoneum identified, tented up and entered sharply with Metzenbaum scissors. The peritoneal incision was then extended superiorly and inferiorly with good visualization of the bladder. However, there was a thickness of the scar tissue coming from the lower segment of the uterus to the muscle which was by the Jacobo scissors. The bladder blade was then inserted where the adhesions between the lower uterine segment of the uterus and anteriorly from the fascia. After it was inserted, the vesicouterine peritoneum identified, grasped with pickups and entered sharply with Metzenbaum scissors. This incision was then extended laterally and the bladder flap created digitally. The bladder blade was then re-inserted and the lower uterine segment incised in transverse fashion with a scalpel. The uterine incision was then extended laterally with bandage scissors. The bladder blade was then removed and the infants head was delivered atraumatically. The nose and mouth were suctioned with bulb suction and the cord clamped and cut. The was then handed off to the awaiting nurses. The placenta was then removed manually. The uterus exteriorized and cleared of all clots and debris. The uterine incision was repaired with 1-0 chromic in a running locked fashion. A second layer of the same suture was used to obtain excellent hemostasis. The uterus is then returned to the abdomen and the gutters were cleared of all clots. The peritoneal muscles closed in interrupted fashion using 2-0 chromic suture. The fascia was re-approximated with 0 Vicryl in running fashion. The subcutaneous layer was closed with 3-0 Vicryl suture and the skin was closed with absorbable yaneth called INSORB. The patient tolerated the procedure well. Sponge, lap, needle and instrument counts were correct x2. The patient was then taken to the recovery room in stable condition. The patient delivered a live baby boy at 0841 hours. 's 8 at 1 minute, 9 at 5 minutes. The weight of the baby was 6.3 pounds.
[2023-05-08] MEDS ORDERED: ENOXAPARIN SODIUM SQ ONE (09:00)
[2023-05-08] MEDS ORDERED: Adacel Vial IM ONE (10:00)
[2023-05-08] MEDS: FERREX 150 PO SCH (11:02)
[2023-05-08] MEDS: Docusate Sodium 100 MG PO SCH ×3 (11:02→21:10)
[2023-05-08] MEDS: MOTRIN 400 MG PO PRN ×3 (11:15→21:10)
[2023-05-09 05:31] LABS: Absolute Neutrophil Ct (ANC) 7.91 x10^3/uL (1.4-6.9); BASOPHIL % 0.6 % (0.0-0.4); Basophil (Absolute #) 0.07 x10^3/uL (0-0.4); Eosinophil % 0.1 % (0.00-5.0); Eosinophil (Absolute #) 0.01 x10^3/uL (0-0.5); Hematocrit 29.3 % (35-47); Hemoglobin 9.3 g/dL (12.0-16.0); IMMATURE GRAN # 0.08 x10^3u/L (0.00-0.03); IMMATURE GRAN % 0.6 % (0.00-0.4); Lymphocyte (Absolute #) 3.39 x10^3/uL (1.0-4.6); Lymphocytes % 27.5 % (24.0-44.0); Mean Cell Volume 86.9 fL (78-100); Mean Corpuscular Hemoglobin 27.6 pg (26-32); Mean Corpuscular Hgb Concent. 31.7 g/dL (32-36); Monocyte (Absolute #) 0.86 x10^3/uL (0.0-1.3); Neutrophil % 64.2 % (36.0-66.0); Platelet Count 234 x10^3/uL (150-450); Red Blood Count 3.37 x10^6/uL (4.1-5.4); Red Cell Distribution Width 13.9 % (11.5-14.0); White Blood Count 12.3 x10^3/uL (4.0-10.5)
[2023-05-09] MEDS: MOTRIN 400 MG PO PRN (08:00)
[2023-05-09 08:48] VITALS: BP 114/55; PULSE 81; RESP 18; TEMP 97.4; O2SAT 98
--- NOTE | 2023-05-09 10:25 | PCM.NOTE ---
Date and Time: 05/09/23 1024 Subjective Assessment: pod 2 pt resting in bed and doing well able to ambulate and tolerate diet vss afebrile abd; soft incision c/d/intact uterus; firm lochia; mild a/p sp csection pod 2 dc home today should fu with dr white next for thursday for incision check OBJECTIVE DATA Vital Signs: Vital Signs - 24 hr Temp Pulse Resp BP Pulse Ox 05/09/23 08:00 97.4 F 81 18 114/55 98 05/09/23 04:00 84 16 98/55 95 05/09/23 00:00 16 05/08/23 20:00 97.9 F 81 16 90/54 99 05/08/23 16:00 97.6 F 74 18 120/62 100 Pain Assessment - Last Documented Pain Intensity [Bilateral 4 Lower] Pain Intensity 6 Pain Scale Used 0-10 Pain Scale Intake and Output: Intake & Output 05/06/23 05/07/23 05/08/23 05/09/23 11:59 11:59 11:59 11:59 Intake Total 0 1600 2320 Output Total 1250 Balance 0 350 2320 Weight 97.522 kg Lab Results: Lab Results-Last 24 Hours 05/09/23 Range/Units 05:08 WBC 12.3 H (4.0-10.5) x10^3/uL RBC 3.37 L (4.1-5.4) x10^6/uL Hgb 9.3 L (12.0-16.0) g/dL Hct 29.3 L (35-47) % MCV 86.9 (78-100) fL MCH 27.6 (26-32) pg MCHC 31.7 L (32-36) g/dL RDW 13.9 (11.5-14.0) % Plt Count 234 (150-450) x10^3/uL MPV 11.0 (7.5-11.0) fL Gran % 64.2 (36.0-66.0) % Immature Gran % (Auto) 0.6 H (0.00-0.4) % Nucleat RBC Rel Count 0.0 (0.00-0.1) % Eos # (Auto) 0.01 (0-0.5) x10^3/uL Immature Gran # (Auto) 0.08 H (0.00-0.03) x10^3u/L Absolute Lymphs (auto) 3.39 (1.0-4.6) x10^3/uL Absolute Monos (auto) 0.86 (0.0-1.3) x10^3/uL Absolute Nucleated RBC 0.00 (0.00-0.01) x10^3u/L Lymphocytes % 27.5 (24.0-44.0) % Monocytes % 7.0 (0.0-12.0) % Eosinophils % 0.1 (0.00-5.0) % Basophils % 0.6 (0.0-0.4) % Absolute Granulocytes 7.91 H (1.4-6.9) x10^3/uL Basophils # 0.07 (0-0.4) x10^3/uL Assessment/Plan (1) S/P repeat low transverse Current Visit: Yes Status: Acute Code(s): Z98.891 - HISTORY OF UTERINE SCAR FROM PREVIOUS SURGERY
--- NOTE | 2023-05-09 10:30 | PCM.DS ---
Discharge Summary Date of Admission: 05/07/23 05:09 Admitting Physician: SANJAY SU DO Consults: Consults on Case 05/07/23 05:00 Notify Anesthesia Provider ROUTINE Primary Care Provider: CHUY HANSEN Allergies Allergies amoxicillin [Amoxicillin] Allergy (Mild, Verified 09/28/22 20:40) morphine Allergy (Verified 09/28/22 20:40) pt has had morphine twice and states she had trouble breathing Hospital Summary - Hospital Course Hospital Course: pt admitted on may 07 at 38 wks gestation and underwent repeat csection secondary to advisement by mfm secondary to hx of previous demise and underwent procedure without complication. during postop period did well able to ambulate and tolerate diet with a stable hgb at 9.3. incision healing well with steristrips intact with no soilage. pt to be given rx of percocet and will fu next or thursday for incision check. all questions answered to her satisfaction. - Vitals & Intake/Output Vital Signs: Vital Signs Temperature 97.4 F 05/09/23 08:00 Pulse Rate 81 05/09/23 08:00 Respiratory Rate 18 05/09/23 08:00 Blood Pressure 114/55 05/09/23 08:00 O2 Sat by Pulse Oximetry 98 05/09/23 08:00 Intake & Output: Intake & Output 05/06/23 05/07/23 05/08/23 05/09/23 11:59 11:59 11:59 11:59 Intake Total 0 1600 2320 Output Total 1250 Balance 0 350 2320 Weight 97.522 kg - Lab Result Diagrams: 05/09/23 05:08 Lab Results-Last 24 Hrs: Lab Results-Last 24 Hours 05/09/23 Range/Units 05:08 WBC 12.3 H (4.0-10.5) x10^3/uL RBC 3.37 L (4.1-5.4) x10^6/uL Hgb 9.3 L (12.0-16.0) g/dL Hct 29.3 L (35-47) % MCV 86.9 (78-100) fL MCH 27.6 (26-32) pg MCHC 31.7 L (32-36) g/dL RDW 13.9 (11.5-14.0) % Plt Count 234 (150-450) x10^3/uL MPV 11.0 (7.5-11.0) fL Gran % 64.2 (36.0-66.0) % Immature Gran % (Auto) 0.6 H (0.00-0.4) % Nucleat RBC Rel Count 0.0 (0.00-0.1) % Eos # (Auto) 0.01 (0-0.5) x10^3/uL Immature Gran # (Auto) 0.08 H (0.00-0.03) x10^3u/L Absolute Lymphs (auto) 3.39 (1.0-4.6) x10^3/uL Absolute Monos (auto) 0.86 (0.0-1.3) x10^3/uL Absolute Nucleated RBC 0.00 (0.00-0.01) x10^3u/L Lymphocytes % 27.5 (24.0-44.0) % Monocytes % 7.0 (0.0-12.0) % Eosinophils % 0.1 (0.00-5.0) % Basophils % 0.6 (0.0-0.4) % Absolute Granulocytes 7.91 H (1.4-6.9) x10^3/uL Basophils # 0.07 (0-0.4) x10^3/uL Micro Results-Entire Visit: Microbiology 05/07/23 08:30 Urine Culture - Preliminary Catherized NO GROWTH TO DATE - Procedures and Test Procedures and Tests throughout Hospitalization: Therapy Orders & Screens 05/07/23 09:04 Standby STAT Comment: Diagnosis: IUP Final Diagnosis/Problem List - Final Discharge Diagnosis/Problem (1) S/P repeat low transverse Current Visit: Yes Status: Acute Code(s): Z98.891 - HISTORY OF UTERINE SCAR FROM PREVIOUS SURGERY - Discharge Disposition: Home, Self-Care Condition: Stable Prescriptions: New Oxycodone HCl/Acetaminophen [Percocet 5-325 mg Tablet] 1 each PO Q6H PRN PRN #26 tablet MDD 4 PRN Reason: Moderate To Severe Pain No Action Vit 93/Iron Fum/Folic [ Formula Tablet] 1 each PO DAILY 30 Days #30 tablet Follow up with: CHUY HANSEN NP [Primary Care Provider] - IMANI PATEL MD [ACTIVE STAFF] - 1 Week
== END 2023-05-09 12:00 | disposition home or self-care (01) | DRG 788 ==
LOC: OB 05:09 → EDSTATUS 22:56
PROVIDERS: ADMIT Obstetrics & Gynecology; ATTEND Obstetrics & Gynecology
PROC: 10D00Z1 Extraction of Products of Conception, Low, Open Approach (ICD-10-PCS; principal; 2023-05-07)
DX: O34.211 Maternal care for low transverse scar from previous cesarean delivery (principal); Z3A.38 38 weeks gestation of pregnancy; Z37.0 Single live birth; Z87.59 Personal history of other complications of pregnancy, childbirth and the puerperium; Z20.828 Contact with and (suspected) exposure to other viral communicable diseases
CPT/HCPCS: 36415; 59510; 64488; 76937; 76942; 80307; 81001; 81015; 85025; 85027; 85610; 85730; 86850; 86900; 86901; 87086; 90715; 94799; 96372; J1100; J1650; J1885; J2371; J2405; J2590; J2795; J3010; A9270-GY

== ENCOUNTER 2024-08-03 22:36 | Observation (INO) | payer BC ==
--- NOTE | 2024-08-03 22:54 | ERPHSYRPT ---
- History of Present Illness Time Seen by Provider: 08/03/24 22:50 Historian: patient Exam Limitations: no limitations Patient Subjective Stated Complaint: pt states for last several days she has been having some tightness in her chest. today she has had pain in her chest that radiates to lt shoulder and lt arm. rates at 6/10 Triage Nursing Assessment: pt alert and oriented. answers questions approp. pt ambulates into room with steady gait noted. respirations nonlabored. skin warm and dry. heart rate 80 on monitor, sinus rhythm with pvc's. Physician History: 29-year-old female presents to emergency department for evaluation of chest pain. Patient states her chest pain radiates to her left shoulder and arm. Patient rates her pain 6 out of 10. No trauma no fever. Symptoms are mild to moderate in intensity. No specific worsening or improving factors. Trigeminy observed on her monitor. Patient denies a cardiac history. No history of PE DVT. Patient is a non-smoker none vapor. Patient otherwise feels well she voices no other complaints or concerns at this time. Portions of this note were created with voice recognition technology. There may be grammatical, spelling, punctuation or sound alike errors Timing/Duration: day(s) (2 to 3 days) Activities at Onset: none Quality: aching Location: substernal Chest Pain Radiation: arm Severity of Pain-Max: moderate Severity of Pain-Current: mild Modifying Factors: Improves With: nothing Associated Symptoms: denies symptoms Prior Chest Pain/Cardiac Workup: no prior chest pain Nitro Today/Relief: no nitro taken today Aspirin Treatment Today: no aspirin today Allergies/Adverse Reactions: amoxicillin [Amoxicillin] Allergy (Mild, Verified 08/03/24 22:37) morphine Allergy (Verified 08/03/24 22:37) pt has had morphine twice and states she had trouble breathing Home Medications: No Reportable Medications [No Reported Medications] 08/03/24 [History] Hx Tetanus, Diphtheria Vaccination/Date Given: Yes Hx Influenza Vaccination/Date Given: No Hx Pneumococcal Vaccination/Date Given: No Immunizations Up to Date: No Travel Risk - International Travel Have you traveled outside of the country in past 3 weeks: No - Emerging Infectious Disease Are you exhibiting symptoms associated with any current EIDs: No - Review of Systems Constitutional: No Symptoms, No Fever, No Chills Eyes: No Symptoms Ears, Nose, & Throat: No Symptoms Respiratory: No Symptoms, No Cough, No Dyspnea Cardiac: No Symptoms, No Chest Pain, No Edema, No Syncope Abdominal/Gastrointestinal: No Symptoms, No Abdominal Pain, No Nausea, No Vomiting, No Diarrhea Genitourinary Symptoms: No Symptoms, No Dysuria Musculoskeletal: No Symptoms, No Back Pain, No Neck Pain Skin: No Symptoms, No Rash Neurological: No Symptoms, No Dizziness, No Focal Weakness, No Sensory Changes Psychological: No Symptoms Endocrine: No Symptoms Hematologic/Lymphatic: No Symptoms Immunological/Allergic: No Symptoms All Other Systems: Reviewed and Negative - Past Medical History Pertinent Past Medical History: No Neurological History: No Pertinent History ENT History: No Pertinent History Cardiac History: No Pertinent History Respiratory History: No Pertinent History Endocrine Medical History: No Pertinent History Musculoskeletal History: No Pertinent History GI Medical History: No Pertinent History History: No Pertinent History Psycho-Social History: No Pertinent History Female Reproductive Disorders: No Pertinent History - Past Surgical History Past Surgical History: Yes Cardiac: No Pertinent History Respiratory: No Pertinent History Gastrointestinal: No Pertinent History Genitourinary: No Pertinent History Musculoskeletal: No Pertinent History Female Surgical History: No Pertinent History Other Surgical History: c sections x3 - Female History Hx Last Menstrual Period: 2 weeks Hx Now: No (iud) - Social History Smoking Status: Former smoker How long have you smoked: vaped Exposure to second hand smoke: No Drug Use: none - Social Determinants of Health Will the patient participate in the screening: Yes Do you worry about a steady place to live?: No Do you have any problems with any of the following?: No known problems In the past 12 months,have you had to go without utilities?: No Transportation Issues: No Has anyone in your support network made you feel unsafe?: No Have you or anyone in your house had to go w/o enough food: No - Nursing Vital Signs Nursing Vital Signs: Initial Vital Signs Temperature 98.1 F 08/03/24 22:37 Pulse Rate 82 08/03/24 22:37 Respiratory Rate 16 08/03/24 22:37 Blood Pressure 116/69 08/03/24 22:37 O2 Sat by Pulse Oximetry 99 08/03/24 22:37 Pain Scale Pain Intensity 3 - Physical Exam General Appearance: no apparent distress, alert Eye Exam: PERRL/EOMI, eyes nml inspection Ears, Nose, Throat Exam: normal ENT inspection, moist mucous membranes Neck Exam: normal inspection, non-tender, supple, full range of motion Respiratory Exam: normal breath sounds, lungs clear, airway intact, No respiratory distress Cardiovascular Exam: regular rate/rhythm, normal heart sounds Gastrointestinal/Abdomen Exam: soft, No tenderness, No mass Back Exam: normal inspection, No CVA tenderness, No vertebral tenderness Extremity Exam: normal inspection, normal range of motion Neurologic Exam: alert, oriented x 3, cooperative, normal mood/affect, sensation nml, No motor deficits Skin Exam: normal color, warm, dry Lymphatic Exam: No adenopathy SpO2 Interpretation: normal SpO2: 99 O2 Delivery: Room Air - Course Nursing assessment & vital signs reviewed: Yes EKG Interpreted by Me: RATE ([id number]), Sinus Rhythm, NORMAL AXIS, NORMAL INTERVALS, NORMAL QRS - Radiology Exams Chest X-ray Interpretation: Teleradiologist Report (No acute findings) Ordered Tests: Active Orders 24 hr Category Date Time Status Security Flex Officer STAT Care 08/03/24 22:52 Active EKG-ER Only STAT Care 08/03/24 22:51 Active IV Insertion STAT Care 08/03/24 22:51 Active Pulse Oximetry (ED) STAT Care 08/03/24 22:51 Active CHEST 1 VIEW (PORTABLE) Stat Exams 08/04/24 00:00 Taken CBC W DIFF Stat Lab 08/03/24 22:56 Completed CMP Stat Lab 08/03/24 22:56 Completed D-DIMER QUANTITATIVE Stat Lab 08/03/24 22:56 Completed NT PRO BNPII Stat Lab 08/03/24 22:56 Completed TROPONIN Q4H Lab 08/03/24 22:56 Completed TROPONIN Q4H Lab 08/04/24 01:27 Completed TROPONIN Q4H Lab 08/04/24 07:00 Ordered UA W/RFX UR CULTURE Stat Lab 08/03/24 23:45 Completed Urine Triage Profile Stat Lab 08/03/24 23:45 Completed Transfer Order Routine Transfer 08/04/24 Ordered Medication Summary Discontinued Medications Generic Name Dose Route Start Last Admin Trade Name Freq PRN Reason Stop Dose Admin Aspirin 162 mg 08/04/24 01:19 08/04/24 01:29 Aspirin 81 Mg Tab.Chew PO 08/04/24 01:20 162 mg STAT ONE Administration Aspirin Confirm 08/04/24 01:28 Aspirin 81 Mg Tab.Chew Administered 08/04/24 01:29 Dose 162 mg .ROUTE .STK-MED ONE Nitroglycerin 1 gm 08/04/24 01:19 08/04/24 01:29 Nitroglycerin 1 Gm Packet TOP 08/04/24 01:20 1 gm STAT ONE Administration Nitroglycerin Confirm 08/04/24 01:28 Nitroglycerin 1 Gm Packet Administered 08/04/24 01:29 Dose 1 gm .ROUTE .STK-MED ONE Lab/Rad Data: Laboratory Result Diagrams 08/03/24 22:56 08/03/24 22:56 Laboratory Results 08/04/24 08/03/24 08/03/24 Range/Units 01:27 23:45 23:45 WBC (3.98-10.04) x10^3/uL RBC (3.93-5.22) x10^6/uL Hgb (11.2-15.7) g/dL Hct (34.1-44.9) % MCV (79.4-94.8) fL MCH (25.6-32.2) pg MCHC (32.2-35.5) g/dL RDW (11.7-14.4) % Plt Count (182-369) x10^3/uL MPV (9.4-12.3) fL Gran % (34.0-71.1) % Immature Gran % (Auto) (0.001-0.429) % Nucleat RBC Rel Count (0.00-0.2) % Eos # (Auto) (0.04-0.36) x10^3/uL Immature Gran # (Auto) (0.001-0.031) x10^3u/L Absolute Lymphs (auto) (1.18-3.74) x10^3/uL Absolute Monos (auto) (0.24-0.86) x10^3/uL Absolute Nucleated RBC (0.00-0.012) x10^3u/L Lymphocytes % (19.3-51.7) % Monocytes % (4.7-12.5) % Eosinophils % (0.7-5.8) % Basophils % (0.1-1.2) % Absolute Granulocytes (1.56-6.13) x10^3/uL Basophils # (0.01-0.08) x10^3/uL D-Dimer (0.0-0.50) mg/L Sodium (135-145) mmol/L Potassium (3.5-5.1) mmol/L Chloride (98-107) mmol/L Carbon Dioxide (22-30) mmol/L Anion Gap (5-15) MEQ/L BUN (7-17) mg/dL Creatinine (0.52-1.04) mg/dL Estimated GFR ML/MIN Glucose (74-106) mg/dL Calcium (8.4-10.2) mg/dL Total Bilirubin (0.2-1.3) mg/dL AST (14-36) U/L ALT (0-35) U/L Alkaline Phosphatase (38-126) U/L Troponin I < 0.012 (0.000-0.033) ng/mL NT-Pro-B Natriuret Pep (<300) pg/mL Serum Total Protein (6.3-8.2) g/dL Albumin (3.5-5.0) g/dL Urine Color Yellow (Yellow) Urine Appearance Clear (Clear) Urine pH 7.0 (4.6-8.0) Ur Specific Marshall >=1.030 A (1.005-1.030) Urine Protein Negative (Negative) Urine Glucose (UA) Negative (Negative) mg/dL Urine Ketones Trace A (Negative) Urine Blood Negative (Negative) Urine Nitrite Negative (Negative) Urine Bilirubin Negative (Negative) Urine Urobilinogen 1.0 A (0.2) mg/dL Ur Leukocyte Esterase Negative (Negative) U Hyaline Cast (Auto) NONE SEEN (0-2) /LPF Urine Microscopic RBC 0-2 (0-5) /HPF Urine Microscopic WBC 0-2 (0-5) /HPF Ur Epithelial Cells Rare (None Seen) /HPF Urine Bacteria None Seen (None Seen) /HPF Urine Culture Reflexed NO (NO) Urine Opiates Level NEGATIVE (NEGATIVE) Ur Methadone NEGATIVE (NEGATIVE) Urine Barbiturates NEGATIVE (NEGATIVE) Ur Phencyclidine (PCP) NEGATIVE (NEGATIVE) Urine Amphetamine POSITIVE A (NEGATIVE) U Benzodiazepine Level NEGATIVE (NEGATIVE) Urine Cocaine NEGATIVE (NEGATIVE) Urine Marijuana (THC) NEGATIVE (NEGATIVE) 08/03/24 08/03/24 08/03/24 Range/Units 22:56 22:56 22:56 WBC (3.98-10.04) x10^3/uL RBC (3.93-5.22) x10^6/uL Hgb (11.2-15.7) g/dL Hct (34.1-44.9) % MCV (79.4-94.8) fL MCH (25.6-32.2) pg MCHC (32.2-35.5) g/dL RDW (11.7-14.4) % Plt Count (182-369) x10^3/uL MPV (9.4-12.3) fL Gran % (34.0-71.1) % Immature Gran % (Auto) (0.001-0.429) % Nucleat RBC Rel Count (0.00-0.2) % Eos # (Auto) (0.04-0.36) x10^3/uL Immature Gran # (Auto) (0.001-0.031) x10^3u/L Absolute Lymphs (auto) (1.18-3.74) x10^3/uL Absolute Monos (auto) (0.24-0.86) x10^3/uL Absolute Nucleated RBC (0.00-0.012) x10^3u/L Lymphocytes % (19.3-51.7) % Monocytes % (4.7-12.5) % Eosinophils % (0.7-5.8) % Basophils % (0.1-1.2) % Absolute Granulocytes (1.56-6.13) x10^3/uL Basophils # (0.01-0.08) x10^3/uL D-Dimer 0.29 (0.0-0.50) mg/L Sodium 142 (135-145) mmol/L Potassium 3.5 (3.5-5.1) mmol/L Chloride 105 (98-107) mmol/L Carbon Dioxide 26 (22-30) mmol/L Anion Gap 14.7 (5-15) MEQ/L BUN 11 (7-17) mg/dL Creatinine 0.88 (0.52-1.04) mg/dL Estimated GFR 90.1 ML/MIN Glucose 103 (74-106) mg/dL Calcium 9.0 (8.4-10.2) mg/dL Total Bilirubin 0.70 (0.2-1.3) mg/dL AST 116 H (14-36) U/L ALT 249 H (0-35) U/L Alkaline Phosphatase 60 (38-126) U/L Troponin I < 0.012 (0.000-0.033) ng/mL NT-Pro-B Natriuret Pep 43.7 (<300) pg/mL Serum Total Protein 7.1 (6.3-8.2) g/dL Albumin 4.4 (3.5-5.0) g/dL Urine Color (Yellow) Urine Appearance (Clear) Urine pH (4.6-8.0) Ur Specific Marshall (1.005-1.030) Urine Protein (Negative) Urine Glucose (UA) (Negative) mg/dL Urine Ketones (Negative) Urine Blood (Negative) Urine Nitrite (Negative) Urine Bilirubin (Negative) Urine Urobilinogen (0.2) mg/dL Ur Leukocyte Esterase (Negative) U Hyaline Cast (Auto) (0-2) /LPF Urine Microscopic RBC (0-5) /HPF Urine Microscopic WBC (0-5) /HPF Ur Epithelial Cells (None Seen) /HPF Urine Bacteria (None Seen) /HPF Urine Culture Reflexed (NO) Urine Opiates Level (NEGATIVE) Ur Methadone (NEGATIVE) Urine Barbiturates (NEGATIVE) Ur Phencyclidine (PCP) (NEGATIVE) Urine Amphetamine (NEGATIVE) U Benzodiazepine Level (NEGATIVE) Urine Cocaine (NEGATIVE) Urine Marijuana (THC) (NEGATIVE) 08/03/24 Range/Units 22:56 WBC 8.3 (3.98-10.04) x10^3/uL RBC 4.57 (3.93-5.22) x10^6/uL Hgb 13.2 (11.2-15.7) g/dL Hct 38.6 (34.1-44.9) % MCV 84.5 (79.4-94.8) fL MCH 28.9 (25.6-32.2) pg MCHC 34.2 (32.2-35.5) g/dL RDW 12.4 (11.7-14.4) % Plt Count 284 (182-369) x10^3/uL MPV 10.4 (9.4-12.3) fL Gran % 56.9 (34.0-71.1) % Immature Gran % (Auto) 0.2 (0.001-0.429) % Nucleat RBC Rel Count 0.0 (0.00-0.2) % Eos # (Auto) 0 L (0.04-0.36) x10^3/uL Immature Gran # (Auto) 0.02 (0.001-0.031) x10^3u/L Absolute Lymphs (auto) 3.03 (1.18-3.74) x10^3/uL Absolute Monos (auto) 0.48 (0.24-0.86) x10^3/uL Absolute Nucleated RBC 0.00 (0.00-0.012) x10^3u/L Lymphocytes % 36.5 (19.3-51.7) % Monocytes % 5.8 (4.7-12.5) % Eosinophils % 0.0 L (0.7-5.8) % Basophils % 0.6 (0.1-1.2) % Absolute Granulocytes 4.73 (1.56-6.13) x10^3/uL Basophils # 0.05 (0.01-0.08) x10^3/uL D-Dimer (0.0-0.50) mg/L Sodium (135-145) mmol/L Potassium (3.5-5.1) mmol/L Chloride (98-107) mmol/L Carbon Dioxide (22-30) mmol/L Anion Gap (5-15) MEQ/L BUN (7-17) mg/dL Creatinine (0.52-1.04) mg/dL Estimated GFR ML/MIN Glucose (74-106) mg/dL Calcium (8.4-10.2) mg/dL Total Bilirubin (0.2-1.3) mg/dL AST (14-36) U/L ALT (0-35) U/L Alkaline Phosphatase (38-126) U/L Troponin I (0.000-0.033) ng/mL NT-Pro-B Natriuret Pep (<300) pg/mL Serum Total Protein (6.3-8.2) g/dL Albumin (3.5-5.0) g/dL Urine Color (Yellow) Urine Appearance (Clear) Urine pH (4.6-8.0) Ur Specific Marshall (1.005-1.030) Urine Protein (Negative) Urine Glucose (UA) (Negative) mg/dL Urine Ketones (Negative) Urine Blood (Negative) Urine Nitrite (Negative) Urine Bilirubin (Negative) Urine Urobilinogen (0.2) mg/dL Ur Leukocyte Esterase (Negative) U Hyaline Cast (Auto) (0-2) /LPF Urine Microscopic RBC (0-5) /HPF Urine Microscopic WBC (0-5) /HPF Ur Epithelial Cells (None Seen) /HPF Urine Bacteria (None Seen) /HPF Urine Culture Reflexed (NO) Urine Opiates Level (NEGATIVE) Ur Methadone (NEGATIVE) Urine Barbiturates (NEGATIVE) Ur Phencyclidine (PCP) (NEGATIVE) Urine Amphetamine (NEGATIVE) U Benzodiazepine Level (NEGATIVE) Urine Cocaine (NEGATIVE) Urine Marijuana (THC) (NEGATIVE) - Progress Progress: improved Air Movement: good Progress Note: 08/04/24 02:06 Patient is a 29-year-old female presents to our ED for evaluation of substernal chest pain. Symptoms have been ongoing for approximately 2 to 3 days. Patient denies a cardiac history. EKG reveals a trigeminy. D-dimer negative. Troponin negative. Chest x-ray shows no acute findings. Formal read pending. In light of patient's ongoing chest pain patient received a dose of aspirin and nitroglycerin patch. Patient will be admitted for further evaluation and treatment. Case discussed with hospitalist, Dr. Turner who accepts admission to observation at approximately 1:50 AM. Plan of care discussed with patient. She agrees to admission to [facility] for further evaluation and treatment. Portions of this note were created with voice recognition technology. There may be grammatical, spelling, punctuation or sound alike errors Complexity of problem addressed is moderate acute complicated. No critical care time. Complexity of data reviewed and analyzed is extensive. Test ordered test reviewed results analyzed and correlated clinically with history and physical exam. Management discussed with hospitalist who accepts admission to observation. Risk of complication and or risk of morbidity/mortality of patient management is high. Patient requires hospitalization for further evaluation and treatment. Portions of this note were created with voice recognition technology. There may be grammatical, spelling, punctuation or sound alike errors Blood Culture(s) Obtained: No Antibiotics given: No Counseled pt/family regarding: lab results, diagnosis, need for follow-up, rad results - Departure Departure Disposition: Observation Clinical Impression: Chest pain, Trigeminy, Elevated liver enzymes, ACS (acute coronary syndrome) Condition: Stable Critical Care Time: No Referrals: CHUY HANSEN NP [Primary Care Provider] - Follow up/PCP as directed
[2024-08-03 22:57] LABS: Absolute Neutrophil Ct (ANC) 4.73 x10^3/uL (1.56-6.13); BASOPHIL % 0.6 % (0.1-1.2); Basophil (Absolute #) 0.05 x10^3/uL (0.01-0.08); Eosinophil (Absolute #) 0 x10^3/uL (0.04-0.36); Hematocrit 38.6 % (34.1-44.9); Hemoglobin 13.2 g/dL (11.2-15.7); IMMATURE GRAN # 0.02 x10^3u/L (0.001-0.031); IMMATURE GRAN % 0.2 % (0.001-0.429); Lymphocyte (Absolute #) 3.03 x10^3/uL (1.18-3.74); Lymphocytes % 36.5 % (19.3-51.7); Mean Cell Volume 84.5 fL (79.4-94.8); Mean Corpuscular Hemoglobin 28.9 pg (25.6-32.2); Mean Corpuscular Hgb Concent. 34.2 g/dL (32.2-35.5); Mean Platelet Volume 10.4 fL (9.4-12.3); Monocyte (Absolute #) 0.48 x10^3/uL (0.24-0.86); Monocytes % 5.8 % (4.7-12.5); Neutrophil % 56.9 % (34.0-71.1); Platelet Count 284 x10^3/uL (182-369); Red Blood Count 4.57 x10^6/uL (3.93-5.22); Red Cell Distribution Width 12.4 % (11.7-14.4); White Blood Count 8.3 x10^3/uL (3.98-10.04)
[2024-08-03 23:13] LABS: ALBUMIN 4.4 g/dL (3.5-5.0); ANION GAP 14.7 MEQ/L (5-15); BILIRUBIN,TOTAL 0.7 mg/dL (0.2-1.3); Creatinine 1 0.88 mg/dL (0.52-1.04); EST GLOMERULAR FILTRATION RATE 90.1 ML/MIN; NT PRO BNPII 43.7 pg/mL (<300); Potassium 3.5 mmol/L (3.5-5.1); Total Protein 7.1 g/dL (6.3-8.2)
[2024-08-04 00:04] LABS: Amphetamine,Urine POSITIVE (NEGATIVE); Barbiturate,Urine NEGATIVE (NEGATIVE); Benzodiazepine,Urine NEGATIVE (NEGATIVE); Cocaine,Urine NEGATIVE (NEGATIVE); Methadone,Urine NEGATIVE (NEGATIVE); Opiate,Urine NEGATIVE (NEGATIVE); PCP,Urine NEGATIVE (NEGATIVE); THC,Urine NEGATIVE (NEGATIVE)
[2024-08-04 00:21] LABS: Appearance Clear (Clear); Bacteria None Seen /HPF (None Seen); Bilirubin Negative (Negative); Blood Negative (Negative); Epithelial Cells Rare /HPF (None Seen); Glucose, Urine Negative (Negative); Hyaline Casts NONE SEEN /LPF (0-2); Ketones Trace (Negative); Leukocyte Esterase Negative (Negative); Nitrite Negative (Negative); Protein,Urine Dip Negative (Negative); RBC 0-2 /HPF (0-5); Specific Gravity >=1.030 (1.005-1.030); WBC 0-2 /HPF (0-5)
[2024-08-04] MEDS ORDERED: BABY ASPIRIN 81 MG CHEW ONE (01:28)
[2024-08-04] MEDS ORDERED: NITRO-BID 2% UD PACKETS ONE (01:28)
[2024-08-04] MEDS: BABY ASPIRIN 81 MG CHEW PO ONE (01:29)
[2024-08-04] MEDS: NITRO-BID 2% UD PACKETS TOP ONE (01:29)
[2024-08-04] MEDS ORDERED: FEVERALL 650 MG PR PRN (04:29)
[2024-08-04] MEDS ORDERED: Zofran 4 MG/2 ML VIAL IV PRN ×2 (04:29→05:17)
--- NOTE | 2024-08-04 04:55 | PCM.HP ---
History of Present Illness - Chief Complaint Chief Complaint: Trigeminy, chest pain Date: 08/04/24 History of Present Illness: is a 29 year old female with no significant past medical history who presented to the ED with chest pain which radiates to her left shoulder and arm. Patient rates her pain 6 out of 10. She does not report fever but she has had significant congestion and in fact has been taking Sudafed for 2 weeks (last dose yesterday morning). The patient denies recreational drug use. She also takes Ozempic, and her last dose was a few weeks ago. In the ED, Trigeminy observed on her monitor. Patient denies a cardiac history. No history of PE or DVT. Patient is a non-smoker. She does not report abdominal pain. She states that she has never been told that her liver enzymes have been elevated before. - Review of Systems Constitutional: No Symptoms Eyes: No Symptoms Ears, Nose, & Throat: Nose Congestion Respiratory: No Symptoms Cardiac: Chest Pain Abdominal/Gastrointestinal: No Symptoms Genitourinary Symptoms: No Symptoms Musculoskeletal: No Symptoms Skin: No Symptoms Neurological: No Symptoms Psychological: No Symptoms Endocrine: No Symptoms Hematologic/Lymphatic: No Symptoms Immunological/Allergic: No Symptoms All Other Systems: Reviewed and Negative Medications & Allergies Home Medications: Home Medication List No Reportable Medications [No Reported Medications] 08/03/24 [History Confirmed 08/03/24] Allergies/Adverse Reactions: Allergies Allergy/AdvReac Type Severity Reaction Status Date / Time amoxicillin [Amoxicillin] Allergy Mild Verified 08/03/24 22:37 morphine Allergy Verified 08/03/24 22:37 - Past Medical History Past Medical History: No Neurological History: No Pertinent History ENT History: No Pertinent History Cardiac History: No Pertinent History Respiratory History: No Pertinent History Endocrine Medical History: No Pertinent History Musculoskelatal History: No Pertinent History GI Medical History: No Pertinent History History: No Pertinent History Pyscho-Social History: No Pertinent History Reproductive Disorders: No Pertinent History - Female History Hx Last Menstrual Period: 2 weeks Are you now?: No (iud) - Past Surgical History Past Surgical History: Yes Cardiac History: No Pertinent History Respiratory Surgery: No Pertinent History GI Surgical History: No Pertinent History Genitourinary Surgical Hx: No Pertinent History Musculskeletal Surgical Hx: No Pertinent History Female Surgical History: No Pertinent History Other Surgical History: c sections x3 Significant Family History: heart disease (father had a MO in his 50s) - Social History Smoking Status: Former smoker How long have you smoked: vaped Exposure to second hand smoke: No Alcohol: Occasionally Drug Use: none - Social Determinants of Health Will the patient participate in the screening: Yes Do you worry about a steady place to live?: No Do you have any problems with any of the following?: No known problems In the past 12 months,have you had to go without utilities?: No Have you or anyone in your house had to go without enough: No Transportation Issues: No Has anyone in your support network made you feel unsafe?: No Does the patient want assistance with any of the above?: No - Physical Exam Vital Signs: Vital Signs - 24 hr Temp Pulse Pulse Resp BP BP Pulse Ox 08/04/24 04:08 97.3 F 90 16 105/55 98 08/04/24 03:30 87 98/58 97 08/04/24 03:00 86 17 107/70 98 08/04/24 02:30 91 H 17 95/81 97 08/04/24 02:09 99 08/04/24 02:00 88 18 108/74 97 08/04/24 01:31 84 18 104/84 98 08/04/24 01:00 79 17 100/74 99 08/04/24 00:30 74 15 109/72 98 08/04/24 00:00 92 H 16 109/67 99 08/03/24 23:30 77 17 106/75 99 08/03/24 23:27 100 08/03/24 23:00 82 14 108/61 100 08/03/24 22:39 80 08/03/24 22:37 98.1 F 82 16 116/69 99 General Appearance: no apparent distress, alert Neurologic Exam: alert, oriented x 3, cooperative, patient transporter II-XII nml as tested, normal mood/affect, nml cerebellar function Eye Exam: PERRL/EOMI, eyes nml inspection Ears, Nose, Throat Exam: normal ENT inspection Neck Exam: normal inspection, non-tender, supple, full range of motion Respiratory Exam: normal breath sounds, lungs clear, airway intact Cardiovascular Exam: irregular Gastrointestinal/Abdomen Exam: soft, normal bowel sounds Back Exam: normal range of motion Extremity Exam: normal inspection, normal range of motion Skin Exam: normal color Results - Labs Lab/Micro Results: Lab Results-Last 24 Hours 08/03/24 08/03/24 08/03/24 Range/Units 22:56 22:56 22:56 WBC 8.3 (3.98-10.04) x10^3/uL RBC 4.57 (3.93-5.22) x10^6/uL Hgb 13.2 (11.2-15.7) g/dL Hct 38.6 (34.1-44.9) % MCV 84.5 (79.4-94.8) fL MCH 28.9 (25.6-32.2) pg MCHC 34.2 (32.2-35.5) g/dL RDW 12.4 (11.7-14.4) % Plt Count 284 (182-369) x10^3/uL MPV 10.4 (9.4-12.3) fL Gran % 56.9 (34.0-71.1) % Immature Gran % (Auto) 0.2 (0.001-0.429) % Nucleat RBC Rel Count 0.0 (0.00-0.2) % Eos # (Auto) 0 L (0.04-0.36) x10^3/uL Immature Gran # (Auto) 0.02 (0.001-0.031) x10^3u/L Absolute Lymphs (auto) 3.03 (1.18-3.74) x10^3/uL Absolute Monos (auto) 0.48 (0.24-0.86) x10^3/uL Absolute Nucleated RBC 0.00 (0.00-0.012) x10^3u/L Lymphocytes % 36.5 (19.3-51.7) % Monocytes % 5.8 (4.7-12.5) % Eosinophils % 0.0 L (0.7-5.8) % Basophils % 0.6 (0.1-1.2) % Absolute Granulocytes 4.73 (1.56-6.13) x10^3/uL Basophils # 0.05 (0.01-0.08) x10^3/uL D-Dimer 0.29 (0.0-0.50) mg/L Sodium 142 (135-145) mmol/L Potassium 3.5 (3.5-5.1) mmol/L Chloride 105 (98-107) mmol/L Carbon Dioxide 26 (22-30) mmol/L Anion Gap 14.7 (5-15) MEQ/L BUN 11 (7-17) mg/dL Creatinine 0.88 (0.52-1.04) mg/dL Estimated GFR 90.1 ML/MIN Glucose 103 (74-106) mg/dL Calcium 9.0 (8.4-10.2) mg/dL Total Bilirubin 0.70 (0.2-1.3) mg/dL AST 116 H (14-36) U/L ALT 249 H (0-35) U/L Alkaline Phosphatase 60 (38-126) U/L Troponin I (0.000-0.033) ng/mL NT-Pro-B Natriuret Pep 43.7 (<300) pg/mL Serum Total Protein 7.1 (6.3-8.2) g/dL Albumin 4.4 (3.5-5.0) g/dL Urine Color (Yellow) Urine Appearance (Clear) Urine pH (4.6-8.0) Ur Specific Garfield (1.005-1.030) Urine Protein (Negative) Urine Glucose (UA) (Negative) mg/dL Urine Ketones (Negative) Urine Blood (Negative) Urine Nitrite (Negative) Urine Bilirubin (Negative) Urine Urobilinogen (0.2) mg/dL Ur Leukocyte Esterase (Negative) U Hyaline Cast (Auto) (0-2) /LPF Urine Microscopic RBC (0-5) /HPF Urine Microscopic WBC (0-5) /HPF Ur Epithelial Cells (None Seen) /HPF Urine Bacteria (None Seen) /HPF Urine Culture Reflexed (NO) Urine Opiates Level (NEGATIVE) Ur Methadone (NEGATIVE) Urine Barbiturates (NEGATIVE) Ur Phencyclidine (PCP) (NEGATIVE) Urine Amphetamine (NEGATIVE) U Benzodiazepine Level (NEGATIVE) Urine Cocaine (NEGATIVE) Urine Marijuana (THC) (NEGATIVE) 08/03/24 08/03/24 08/03/24 Range/Units 22:56 23:45 23:45 WBC (3.98-10.04) x10^3/uL RBC (3.93-5.22) x10^6/uL Hgb (11.2-15.7) g/dL Hct (34.1-44.9) % MCV (79.4-94.8) fL MCH (25.6-32.2) pg MCHC (32.2-35.5) g/dL RDW (11.7-14.4) % Plt Count (182-369) x10^3/uL MPV (9.4-12.3) fL Gran % (34.0-71.1) % Immature Gran % (Auto) (0.001-0.429) % Nucleat RBC Rel Count (0.00-0.2) % Eos # (Auto) (0.04-0.36) x10^3/uL Immature Gran # (Auto) (0.001-0.031) x10^3u/L Absolute Lymphs (auto) (1.18-3.74) x10^3/uL Absolute Monos (auto) (0.24-0.86) x10^3/uL Absolute Nucleated RBC (0.00-0.012) x10^3u/L Lymphocytes % (19.3-51.7) % Monocytes % (4.7-12.5) % Eosinophils % (0.7-5.8) % Basophils % (0.1-1.2) % Absolute Granulocytes (1.56-6.13) x10^3/uL Basophils # (0.01-0.08) x10^3/uL D-Dimer (0.0-0.50) mg/L Sodium (135-145) mmol/L Potassium (3.5-5.1) mmol/L Chloride (98-107) mmol/L Carbon Dioxide (22-30) mmol/L Anion Gap (5-15) MEQ/L BUN (7-17) mg/dL Creatinine (0.52-1.04) mg/dL Estimated GFR ML/MIN Glucose (74-106) mg/dL Calcium (8.4-10.2) mg/dL Total Bilirubin (0.2-1.3) mg/dL AST (14-36) U/L ALT (0-35) U/L Alkaline Phosphatase (38-126) U/L Troponin I < 0.012 (0.000-0.033) ng/mL NT-Pro-B Natriuret Pep (<300) pg/mL Serum Total Protein (6.3-8.2) g/dL Albumin (3.5-5.0) g/dL Urine Color Yellow (Yellow) Urine Appearance Clear (Clear) Urine pH 7.0 (4.6-8.0) Ur Specific Garfield >=1.030 A (1.005-1.030) Urine Protein Negative (Negative) Urine Glucose (UA) Negative (Negative) mg/dL Urine Ketones Trace A (Negative) Urine Blood Negative (Negative) Urine Nitrite Negative (Negative) Urine Bilirubin Negative (Negative) Urine Urobilinogen 1.0 A (0.2) mg/dL Ur Leukocyte Esterase Negative (Negative) U Hyaline Cast (Auto) NONE SEEN (0-2) /LPF Urine Microscopic RBC 0-2 (0-5) /HPF Urine Microscopic WBC 0-2 (0-5) /HPF Ur Epithelial Cells Rare (None Seen) /HPF Urine Bacteria None Seen (None Seen) /HPF Urine Culture Reflexed NO (NO) Urine Opiates Level NEGATIVE (NEGATIVE) Ur Methadone NEGATIVE (NEGATIVE) Urine Barbiturates NEGATIVE (NEGATIVE) Ur Phencyclidine (PCP) NEGATIVE (NEGATIVE) Urine Amphetamine POSITIVE A (NEGATIVE) U Benzodiazepine Level NEGATIVE (NEGATIVE) Urine Cocaine NEGATIVE (NEGATIVE) Urine Marijuana (THC) NEGATIVE (NEGATIVE) 08/04/ Range/Units 01:27 WBC (3.98-10.04) x10^3/uL RBC (3.93-5.22) x10^6/uL Hgb (11.2-15.7) g/dL Hct (34.1-44.9) % MCV (79.4-94.8) fL MCH (25.6-32.2) pg MCHC (32.2-35.5) g/dL RDW (11.7-14.4) % Plt Count (182-369) x10^3/uL MPV (9.4-12.3) fL Gran % (34.0-71.1) % Immature Gran % (Auto) (0.001-0.429) % Nucleat RBC Rel Count (0.00-0.2) % Eos # (Auto) (0.04-0.36) x10^3/uL Immature Gran # (Auto) (0.001-0.031) x10^3u/L Absolute Lymphs (auto) (1.18-3.74) x10^3/uL Absolute Monos (auto) (0.24-0.86) x10^3/uL Absolute Nucleated RBC (0.00-0.012) x10^3u/L Lymphocytes % (19.3-51.7) % Monocytes % (4.7-12.5) % Eosinophils % (0.7-5.8) % Basophils % (0.1-1.2) % Absolute Granulocytes (1.56-6.13) x10^3/uL Basophils # (0.01-0.08) x10^3/uL D-Dimer (0.0-0.50) mg/L Sodium (135-145) mmol/L Potassium (3.5-5.1) mmol/L Chloride (98-107) mmol/L Carbon Dioxide (22-30) mmol/L Anion Gap (5-15) MEQ/L BUN (7-17) mg/dL Creatinine (0.52-1.04) mg/dL Estimated GFR ML/MIN Glucose (74-106) mg/dL Calcium (8.4-10.2) mg/dL Total Bilirubin (0.2-1.3) mg/dL AST (14-36) U/L ALT (0-35) U/L Alkaline Phosphatase (38-126) U/L Troponin I < 0.012 (0.000-0.033) ng/mL NT-Pro-B Natriuret Pep (<300) pg/mL Serum Total Protein (6.3-8.2) g/dL Albumin (3.5-5.0) g/dL Urine Color (Yellow) Urine Appearance (Clear) Urine pH (4.6-8.0) Ur Specific Garfield (1.005-1.030) Urine Protein (Negative) Urine Glucose (UA) (Negative) mg/dL Urine Ketones (Negative) Urine Blood (Negative) Urine Nitrite (Negative) Urine Bilirubin (Negative) Urine Urobilinogen (0.2) mg/dL Ur Leukocyte Esterase (Negative) U Hyaline Cast (Auto) (0-2) /LPF Urine Microscopic RBC (0-5) /HPF Urine Microscopic WBC (0-5) /HPF Ur Epithelial Cells (None Seen) /HPF Urine Bacteria (None Seen) /HPF Urine Culture Reflexed (NO) Urine Opiates Level (NEGATIVE) Ur Methadone (NEGATIVE) Urine Barbiturates (NEGATIVE) Ur Phencyclidine (PCP) (NEGATIVE) Urine Amphetamine (NEGATIVE) U Benzodiazepine Level (NEGATIVE) Urine Cocaine (NEGATIVE) Urine Marijuana (THC) (NEGATIVE) - Radiology Impressions Radiology Exams & Impressions: Radiology Procedures Category Date Time Status CHEST 1 VIEW (PORTABLE) Stat Exams 08/04/24 00:00 Taken ECHO W/2D AND DOPPLER [US] Routine Exams 08/04/24 04:31 Ordered ECHO W/2D AND DOPPLER [US] Routine Exams 08/04/24 04:41 Ordered US ABDOMEN LIMITED [ABDOMINAL-LIMITED] [US] Routine Exams 08/04/24 04:32 Ordered US ABDOMEN LIMITED [ABDOMINAL-LIMITED] [US] Routine Exams 08/04/24 04:41 Ordered Assessment/Plan (1) Chest pain Current Visit: Yes Status: Acute Assessment & Plan: Unclear if trigeminy is precipitating chest discomfort. Troponins negative. Placed on ASA for now. Serial enzymes on tele. Check ECHO. Pain is not epigastric, but will check lipase (patient is on Ozempic with risk of pancreatitis) Code(s): R07.9 - CHEST PAIN, UNSPECIFIED (2) Trigeminy Current Visit: Yes Status: Acute Assessment & Plan: Likely provoked by prolonged Sudafed use. Telemetry. ECHO as above. Check magnesium, TSH. May need to place on low dose beta dre (atenolol). Could consider cardiology consult if persistent. Code(s): R00.8 - OTHER ABNORMALITIES OF HEART BEAT (3) Elevated liver enzymes Current Visit: Yes Status: Acute Assessment & Plan: Unclear etiology. Will obtain liver US. Exam benign. Will check lipase. Code(s): R74.8 - ABNORMAL LEVELS OF OTHER SERUM ENZYMES (4) Nasal congestion Current Visit: Yes Status: Acute Assessment & Plan: Avoid Sudafed use. Symptom control with other agents if needed. Code(s): R09.81 - NASAL CONGESTION Telemedicine Encounter - Telemedicine Encounter Telemedicine Encounter: "The entirety of this encounter was performed via Telemedicine" This visit was performed using real-time audio and video connection between my location and thepatients locationwith the assistance of a surrogateat the patients location. Written or verbal consent was obtained from the patient/guardian to perform this visit [email or web address]. Any patient questions regarding the telemedicine interaction were answered. Please note that this admission required 41 minutes to complete.
[2024-08-04] MEDS ORDERED: TYLENOL EXTRA STRENGTH 500 MG PO PRN (05:19)
[2024-08-04 07:10] LABS: MAGNESIUM 1.9 mg/dL (1.6-2.3)
[2024-08-04 07:34] LABS: Hematocrit 37.1 % (34.1-44.9); Hemoglobin 12.6 g/dL (11.2-15.7); Mean Cell Volume 84.5 fL (79.4-94.8); Mean Corpuscular Hemoglobin 28.7 pg (25.6-32.2); Mean Platelet Volume 10.6 fL (9.4-12.3); Platelet Count 253 x10^3/uL (182-369); Red Blood Count 4.39 x10^6/uL (3.93-5.22); Red Cell Distribution Width 12.2 % (11.7-14.4); White Blood Count 7.9 x10^3/uL (3.98-10.04)
[2024-08-04 07:40] LABS: ANION GAP 13.6 MEQ/L (5-15); BILIRUBIN,TOTAL 0.7 mg/dL (0.2-1.3); Calcium 8.8 mg/dL (8.4-10.2); Creatinine 1 0.78 mg/dL (0.52-1.04); EST GLOMERULAR FILTRATION RATE 104.1 ML/MIN; Potassium 3.5 mmol/L (3.5-5.1); Total Protein 6.3 g/dL (6.3-8.2)
--- NOTE | 2024-08-04 08:48 | XRAY ---
Indication: Pain. Comparison: None Portable chest demonstrates normal heart, lungs, and bony thorax.
[2024-08-04] MEDS: Ecotrin 325 MG PO SCH (09:33)
[2024-08-04] MEDS: ENOXAPARIN SODIUM SQ SCH (09:33)
[2024-08-04] MEDS: Pepcid 20 MG PO SCH (09:33)
[2024-08-04] MEDS ORDERED: Pepcid 20 MG PO SCH (10:00)
[2024-08-04] MEDS ORDERED: Ecotrin 325 MG PO SCH (10:00)
[2024-08-04] MEDS ORDERED: ENOXAPARIN SODIUM SQ SCH (10:00)
--- NOTE | 2024-08-04 10:33 | PCM.DS ---
Discharge Summary Date of Admission: 08/04/24 04:01 Date of Discharge: 08/04/24 Admitting Physician: HAYDER MARTINEZ MD Primary Care Provider: CHUY HANSEN Allergies Allergies amoxicillin [Amoxicillin] Allergy (Mild, Verified 08/03/24 22:37) morphine Allergy (Verified 08/03/24 22:37) pt has had morphine twice and states she had trouble breathing Hospital Summary - Hospital Course Hospital Course: 08/04/24 is a 29 year old female with no significant past medical history. She presented to the ED on 08/03/24 with chest pain which radiates to her left shoulder and arm. Patient rates her pain 6 out of 10. She does not report fever but she has had significant congestion and in fact has been taking Sudafed for 2 weeks (last dose yesterday morning). The patient denies recreational drug use. She also takes Ozempic, and her last dose was a few weeks ago. In the ED, Trigeminy observed on her monitor. Patient denies a cardiac history. No history of PE or DVT. Patient is a non-smoker. She does not report abdominal pain. She states that she has never been told that her liver enzymes have been elevated before. Today liver enzymes trending down. She is scheduled for an US of liver and an Echo. If Liver US ok may d/c today. She will need to follow up OP with cardiology and PCP for echo results. She denies CP, SOB, abd. pain, N/V/D. - Vitals & Intake/Output Vital Signs: Vital Signs Temperature 97.5 F 08/04/24 08:05 Pulse Rate 74 08/04/24 08:05 Respiratory Rate 17 08/04/24 08:05 Blood Pressure 101/65 08/04/24 08:05 O2 Sat by Pulse Oximetry 98 08/04/24 08:05 Intake & Output: Intake & Output 08/01/24 08/02/24 08/03/24 08/04/24 11:59 11:59 11:59 11:59 Intake Total 120 Balance 120 Weight 73.9 kg - Lab Result Diagrams: 08/04/24 07:05 08/04/24 07:05 Lab Results-Last 24 Hrs: Lab Results-Last 24 Hours 03/26/25 03/26/25 03/26/25 Range/Units 22:56 22:56 22:56 WBC 8.3 (3.98-10.04) x10^3/uL RBC 4.57 (3.93-5.22) x10^6/uL Hgb 13.2 (11.2-15.7) g/dL Hct 38.6 (34.1-44.9) % MCV 84.5 (79.4-94.8) fL MCH 28.9 (25.6-32.2) pg MCHC 34.2 (32.2-35.5) g/dL RDW 12.4 (11.7-14.4) % Plt Count 284 (182-369) x10^3/uL MPV 10.4 (9.4-12.3) fL Gran % 56.9 (34.0-71.1) % Immature Gran % (Auto) 0.2 (0.001-0.429) % Nucleat RBC Rel Count 0.0 (0.00-0.2) % Eos # (Auto) 0 L (0.04-0.36) x10^3/uL Immature Gran # (Auto) 0.02 (0.001-0.031) x10^3u/L Absolute Lymphs (auto) 3.03 (1.18-3.74) x10^3/uL Absolute Monos (auto) 0.48 (0.24-0.86) x10^3/uL Absolute Nucleated RBC 0.00 (0.00-0.012) x10^3u/L Lymphocytes % 36.5 (19.3-51.7) % Monocytes % 5.8 (4.7-12.5) % Eosinophils % 0.0 L (0.7-5.8) % Basophils % 0.6 (0.1-1.2) % Absolute Granulocytes 4.73 (1.56-6.13) x10^3/uL Basophils # 0.05 (0.01-0.08) x10^3/uL D-Dimer 0.29 (0.0-0.50) mg/L Sodium 142 (135-145) mmol/L Potassium 3.5 (3.5-5.1) mmol/L Chloride 105 (98-107) mmol/L Carbon Dioxide 26 (22-30) mmol/L Anion Gap 14.7 (5-15) MEQ/L BUN 11 (7-17) mg/dL Creatinine 0.88 (0.52-1.04) mg/dL Estimated GFR 90.1 ML/MIN Glucose 103 (74-106) mg/dL Calcium 9.0 (8.4-10.2) mg/dL Magnesium (1.6-2.3) mg/dL Total Bilirubin 0.70 (0.2-1.3) mg/dL AST 116 H (14-36) U/L ALT 249 H (0-35) U/L Alkaline Phosphatase 60 (38-126) U/L Troponin I (0.000-0.033) ng/mL NT-Pro-B Natriuret Pep 43.7 (<300) pg/mL Serum Total Protein 7.1 (6.3-8.2) g/dL Albumin 4.4 (3.5-5.0) g/dL Lipase (23-300) U/L TSH 3rd Generation (0.470-4.680) mIU/L Urine Color (Yellow) Urine Appearance (Clear) Urine pH (4.6-8.0) Ur Specific [place] (1.005-1.030) Urine Protein (Negative) Urine Glucose (UA) (Negative) mg/dL Urine Ketones (Negative) Urine Blood (Negative) Urine Nitrite (Negative) Urine Bilirubin (Negative) Urine Urobilinogen (0.2) mg/dL Ur Leukocyte Esterase (Negative) U Hyaline Cast (Auto) (0-2) /LPF Urine Microscopic RBC (0-5) /HPF Urine Microscopic WBC (0-5) /HPF Ur Epithelial Cells (None Seen) /HPF Urine Bacteria (None Seen) /HPF Urine Culture Reflexed (NO) Urine Opiates Level (NEGATIVE) Ur Methadone (NEGATIVE) Urine Barbiturates (NEGATIVE) Ur Phencyclidine (PCP) (NEGATIVE) Urine Amphetamine (NEGATIVE) U Benzodiazepine Level (NEGATIVE) Urine Cocaine (NEGATIVE) Urine Marijuana (THC) (NEGATIVE) 08/03/24 08/03/24 08/03/24 Range/Units 22:56 23:45 23:45 WBC (3.98-10.04) x10^3/uL RBC (3.93-5.22) x10^6/uL Hgb (11.2-15.7) g/dL Hct (34.1-44.9) % MCV (79.4-94.8) fL MCH (25.6-32.2) pg MCHC (32.2-35.5) g/dL RDW (11.7-14.4) % Plt Count (182-369) x10^3/uL MPV (9.4-12.3) fL Gran % (34.0-71.1) % Immature Gran % (Auto) (0.001-0.429) % Nucleat RBC Rel Count (0.00-0.2) % Eos # (Auto) (0.04-0.36) x10^3/uL Immature Gran # (Auto) (0.001-0.031) x10^3u/L Absolute Lymphs (auto) (1.18-3.74) x10^3/uL Absolute Monos (auto) (0.24-0.86) x10^3/uL Absolute Nucleated RBC (0.00-0.012) x10^3u/L Lymphocytes % (19.3-51.7) % Monocytes % (4.7-12.5) % Eosinophils % (0.7-5.8) % Basophils % (0.1-1.2) % Absolute Granulocytes (1.56-6.13) x10^3/uL Basophils # (0.01-0.08) x10^3/uL D-Dimer (0.0-0.50) mg/L Sodium (135-145) mmol/L Potassium (3.5-5.1) mmol/L Chloride (98-107) mmol/L Carbon Dioxide (22-30) mmol/L Anion Gap (5-15) MEQ/L BUN (7-17) mg/dL Creatinine (0.52-1.04) mg/dL Estimated GFR ML/MIN Glucose (74-106) mg/dL Calcium (8.4-10.2) mg/dL Magnesium (1.6-2.3) mg/dL Total Bilirubin (0.2-1.3) mg/dL AST (14-36) U/L ALT (0-35) U/L Alkaline Phosphatase (38-126) U/L Troponin I < 0.012 (0.000-0.033) ng/mL NT-Pro-B Natriuret Pep (<300) pg/mL Serum Total Protein (6.3-8.2) g/dL Albumin (3.5-5.0) g/dL Lipase (23-300) U/L TSH 3rd Generation (0.470-4.680) mIU/L Urine Color Yellow (Yellow) Urine Appearance Clear (Clear) Urine pH 7.0 (4.6-8.0) Ur Specific [place] >=1.030 A (1.005-1.030) Urine Protein Negative (Negative) Urine Glucose (UA) Negative (Negative) mg/dL Urine Ketones Trace A (Negative) Urine Blood Negative (Negative) Urine Nitrite Negative (Negative) Urine Bilirubin Negative (Negative) Urine Urobilinogen 1.0 A (0.2) mg/dL Ur Leukocyte Esterase Negative (Negative) U Hyaline Cast (Auto) NONE SEEN (0-2) /LPF Urine Microscopic RBC 0-2 (0-5) /HPF Urine Microscopic WBC 0-2 (0-5) /HPF Ur Epithelial Cells Rare (None Seen) /HPF Urine Bacteria None Seen (None Seen) /HPF Urine Culture Reflexed NO (NO) Urine Opiates Level NEGATIVE (NEGATIVE) Ur Methadone NEGATIVE (NEGATIVE) Urine Barbiturates NEGATIVE (NEGATIVE) Ur Phencyclidine (PCP) NEGATIVE (NEGATIVE) Urine Amphetamine POSITIVE A (NEGATIVE) U Benzodiazepine Level NEGATIVE (NEGATIVE) Urine Cocaine NEGATIVE (NEGATIVE) Urine Marijuana (THC) NEGATIVE (NEGATIVE) 08/04/24 08/04/24 08/04/24 Range/Units 01:27 04:31 04:36 WBC (3.98-10.04) x10^3/uL RBC (3.93-5.22) x10^6/uL Hgb (11.2-15.7) g/dL Hct (34.1-44.9) % MCV (79.4-94.8) fL MCH (25.6-32.2) pg MCHC (32.2-35.5) g/dL RDW (11.7-14.4) % Plt Count (182-369) x10^3/uL MPV (9.4-12.3) fL Gran % (34.0-71.1) % Immature Gran % (Auto) (0.001-0.429) % Nucleat RBC Rel Count (0.00-0.2) % Eos # (Auto) (0.04-0.36) x10^3/uL Immature Gran # (Auto) (0.001-0.031) x10^3u/L Absolute Lymphs (auto) (1.18-3.74) x10^3/uL Absolute Monos (auto) (0.24-0.86) x10^3/uL Absolute Nucleated RBC (0.00-0.012) x10^3u/L Lymphocytes % (19.3-51.7) % Monocytes % (4.7-12.5) % Eosinophils % (0.7-5.8) % Basophils % (0.1-1.2) % Absolute Granulocytes (1.56-6.13) x10^3/uL Basophils # (0.01-0.08) x10^3/uL D-Dimer (0.0-0.50) mg/L Sodium (135-145) mmol/L Potassium (3.5-5.1) mmol/L Chloride (98-107) mmol/L Carbon Dioxide (22-30) mmol/L Anion Gap (5-15) MEQ/L BUN (7-17) mg/dL Creatinine (0.52-1.04) mg/dL Estimated GFR ML/MIN Glucose (74-106) mg/dL Calcium (8.4-10.2) mg/dL Magnesium 1.9 (1.6-2.3) mg/dL Total Bilirubin (0.2-1.3) mg/dL AST (14-36) U/L ALT (0-35) U/L Alkaline Phosphatase (38-126) U/L Troponin I < 0.012 (0.000-0.033) ng/mL NT-Pro-B Natriuret Pep (<300) pg/mL Serum Total Protein (6.3-8.2) g/dL Albumin (3.5-5.0) g/dL Lipase 104 (23-300) U/L TSH 3rd Generation 2.466 (0.470-4.680) mIU/L Urine Color (Yellow) Urine Appearance (Clear) Urine pH (4.6-8.0) Ur Specific [place] (1.005-1.030) Urine Protein (Negative) Urine Glucose (UA) (Negative) mg/dL Urine Ketones (Negative) Urine Blood (Negative) Urine Nitrite (Negative) Urine Bilirubin (Negative) Urine Urobilinogen (0.2) mg/dL Ur Leukocyte Esterase (Negative) U Hyaline Cast (Auto) (0-2) /LPF Urine Microscopic RBC (0-5) /HPF Urine Microscopic WBC (0-5) /HPF Ur Epithelial Cells (None Seen) /HPF Urine Bacteria (None Seen) /HPF Urine Culture Reflexed (NO) Urine Opiates Level (NEGATIVE) Ur Methadone (NEGATIVE) Urine Barbiturates (NEGATIVE) Ur Phencyclidine (PCP) (NEGATIVE) Urine Amphetamine (NEGATIVE) U Benzodiazepine Level (NEGATIVE) Urine Cocaine (NEGATIVE) Urine Marijuana (THC) (NEGATIVE) 08/04/24 08/04/24 08/04/24 Range/Units 07:05 07:05 07:05 WBC 7.9 (3.98-10.04) x10^3/uL RBC 4.39 (3.93-5.22) x10^6/uL Hgb 12.6 (11.2-15.7) g/dL Hct 37.1 (34.1-44.9) % MCV 84.5 (79.4-94.8) fL MCH 28.7 (25.6-32.2) pg MCHC 34.0 (32.2-35.5) g/dL RDW 12.2 (11.7-14.4) % Plt Count 253 (182-369) x10^3/uL MPV 10.6 (9.4-12.3) fL Gran % (34.0-71.1) % Immature Gran % (Auto) (0.001-0.429) % Nucleat RBC Rel Count (0.00-0.2) % Eos # (Auto) (0.04-0.36) x10^3/uL Immature Gran # (Auto) (0.001-0.031) x10^3u/L Absolute Lymphs (auto) (1.18-3.74) x10^3/uL Absolute Monos (auto) (0.24-0.86) x10^3/uL Absolute Nucleated RBC (0.00-0.012) x10^3u/L Lymphocytes % (19.3-51.7) % Monocytes % (4.7-12.5) % Eosinophils % (0.7-5.8) % Basophils % (0.1-1.2) % Absolute Granulocytes (1.56-6.13) x10^3/uL Basophils # (0.01-0.08) x10^3/uL D-Dimer (0.0-0.50) mg/L Sodium 141 (135-145) mmol/L Potassium 3.5 (3.5-5.1) mmol/L Chloride 109 H (98-107) mmol/L Carbon Dioxide 23 (22-30) mmol/L Anion Gap 13.6 (5-15) MEQ/L BUN 11 (7-17) mg/dL Creatinine 0.78 (0.52-1.04) mg/dL Estimated GFR 104.1 ML/MIN Glucose 83 (74-106) mg/dL Calcium 8.8 (8.4-10.2) mg/dL Magnesium (1.6-2.3) mg/dL Total Bilirubin 0.70 (0.2-1.3) mg/dL AST 77 H (14-36) U/L ALT 206 H (0-35) U/L Alkaline Phosphatase 66 (38-126) U/L Troponin I < 0.012 (0.000-0.033) ng/mL NT-Pro-B Natriuret Pep (<300) pg/mL Serum Total Protein 6.3 (6.3-8.2) g/dL Albumin 4.0 (3.5-5.0) g/dL Lipase (23-300) U/L TSH 3rd Generation (0.470-4.680) mIU/L Urine Color (Yellow) Urine Appearance (Clear) Urine pH (4.6-8.0) Ur Specific [place] (1.005-1.030) Urine Protein (Negative) Urine Glucose (UA) (Negative) mg/dL Urine Ketones (Negative) Urine Blood (Negative) Urine Nitrite (Negative) Urine Bilirubin (Negative) Urine Urobilinogen (0.2) mg/dL Ur Leukocyte Esterase (Negative) U Hyaline Cast (Auto) (0-2) /LPF Urine Microscopic RBC (0-5) /HPF Urine Microscopic WBC (0-5) /HPF Ur Epithelial Cells (None Seen) /HPF Urine Bacteria (None Seen) /HPF Urine Culture Reflexed (NO) Urine Opiates Level (NEGATIVE) Ur Methadone (NEGATIVE) Urine Barbiturates (NEGATIVE) Ur Phencyclidine (PCP) (NEGATIVE) Urine Amphetamine (NEGATIVE) U Benzodiazepine Level (NEGATIVE) Urine Cocaine (NEGATIVE) Urine Marijuana (THC) (NEGATIVE) - Radiology Exams Ordered Rad Exams-Entire Visit: Radiology Procedures Category Date Time Status CHEST 1 VIEW (PORTABLE) Stat Exams 08/04/24 00:00 Completed ECHO W/2D AND DOPPLER [US] Routine Exams 08/04/24 04:41 Ordered US ABDOMEN LIMITED [ABDOMINAL-LIMITED] [US] Routine Exams 08/04/24 04:41 Ordered - Procedures and Test Procedures and Tests throughout Hospitalization: Therapy Orders & Screens 08/04/24 07:27 EKG STAT Comment: Diagnosis: Trigeminy, chest pain Final Diagnosis/Problem List - Final Discharge Diagnosis/Problem (1) Adverse effect of pseudoephedrine Current Visit: Yes Status: Acute Assessment & Plan: - CP, arrythmia - advised cessation Code(s): T44.995A - ADVERSE EFFECT OF DRUG AFF THE AUTONOMIC NERVOUS SYS, INIT (2) Chest pain Current Visit: Yes Status: Acute Assessment & Plan: - Trop x3 negative - Echo - Will refer to OP cardiology for stress test Code(s): R07.9 - CHEST PAIN, UNSPECIFIED (3) Elevated liver enzymes Current Visit: Yes Status: Acute Assessment & Plan: - AST 77, ALT 206 - Likely 2:2 recent illness - Liver US pending Code(s): R74.8 - ABNORMAL LEVELS OF OTHER SERUM ENZYMES (4) Trigeminy Current Visit: Yes Status: Acute Assessment & Plan: - as seen on EKG on admission - repeat EKG reviewed - F/U OP with cardiology Code(s): R00.8 - OTHER ABNORMALITIES OF HEART BEAT - Discharge Discharge Date: 08/04/24 Disposition: Home, Self-Care Condition: Stable Prescriptions: No Action No Reportable Medications [No Reported Medications] Instructions: Chest pain - Discharge instructions Additional Instructions: Stop sudafed Have liver enzymes rechecked with PCP follow up Follow up with: GENIE ADAMS [CONSULTING PHYSICIAN] - 08/11/24 9:00 am ([facility]) TYRONE,CHUY MACARIO, [employer] [Primary Care Provider] - 08/12/24 10:00 am
--- NOTE | 2024-08-04 15:14 | XRAY ---
Indication: Elevated liver labs. Two-dimensional right upper quadrant abdominal sonogram performed. Comparison: None Pancreas not well-seen due to overlying bowel gas. Remaining visualized liver, gallbladder, and right kidney are sonographically unremarkable. No free fluid. Right kidney measures 9.9 x 3.6 x 4.7 cm. Impression: Nonvisualization pancreas. Remaining right upper quadrant sonogram is negative.
[2024-08-04 16:39] VITALS: BP 118/71; PULSE 86; RESP 18; TEMP 97.8; O2SAT 100
== END 2024-08-04 16:35 | disposition home or self-care (01) ==
LOC: ED 22:36 → MED SURG 08-04 04:01
PROVIDERS: ADMIT Internal Medicine; ATTEND Internal Medicine
DX: T44.995A Adverse effect of other drug primarily affecting the autonomic nervous system, initial encounter (principal); R07.9 Chest pain, unspecified; R74.8 Abnormal levels of other serum enzymes; R00.8 Other abnormalities of heart beat; R09.81 Nasal congestion
CPT/HCPCS: 36415; 71045; 76705; 80053; 80307; 81001; 83690; 83735; 83880; 84443; 84484; 85025; 85027; 85379; 93005; 93041; 93268; 93306; 94760; 99285; G0378; 99284; J1650; A9270-GY